=== PATIENT | female | born 1980 | race Caucasian/White ===

== ENCOUNTER 2018-04-09 15:32 | Inpatient (IN) | payer MEDICARE, MEDICAID, SELFPAY ==
[2018-04-09] VITALS (9 sets, daily range): BP systolic 114–144; BP diastolic 52–105; PULSE 109–137; RESP 20–42; TEMP 36.6–37.9; O2SAT 83–99; BMI 35.4
--- NOTE | 2018-04-09 15:33 | DI.RAD.S_ITS ---
PROCEDURE: XR CHEST 1V INDICATIONS: sob, wheezing, exposed to oven block cleaner. TECHNIQUE: One view of the chest was acquired. COMPARISON: None. FINDINGS: Surgical changes and devices: None. Lungs and pleura: Patchy right lower lobe opacity. In addition, streaky opacities are noted in the left upper and left lower lobes. Mediastinum: Mediastinal contours appear normal. Heart size is normal. Bones and chest wall: No suspicious bony lesions. Overlying soft tissues appear unremarkable. IMPRESSION: Streaky opacities within the lungs bilaterally. This could be related to infection or inflammatory change. However, given history of potential inhalation exposure, short interval imaging followup is recommended as development of ARDS cannot be excluded. Dictated by: Karissa Aldridge M.D. on 04/09/2018 at 17:53 Approved by: Karissa Aldridge M.D. on 04/09/2018 at 17:54
[2018-04-09] MEDS: ALBUTEROL 2.5 MG/3 ML NEB (ADULT) INH ×3 (16:13→17:19)
[2018-04-09] MEDS: ALBUTEROL/IPRATROPIUM 3 ML AMPUL INH (16:13)
--- NOTE | 2018-04-09 16:20 | ED.ASTHMA ---
HPI - Asthma General Chief Complaint: Asthma Stated Complaint: shortness of breath, hypoxia. Time Seen by Provider: 04/09/18 15:44 Source: patient and family Mode of arrival: ambulatory Limitations: no limitations History of Present Illness HPI Narrative: 37-year-old former smoker with history of IV drug abuse presents with chief complaint of respiratory distress after being exposed to of in clean her. She had been using the oven pillowcase cleaner and breathed in some of the fumes in the kitchen which seemed to trigger an asthma exacerbation. She came in significant respiratory distress, was hypoxic, tachypneic and anxious. She has a long history of asthma requiring hospitalizations and has in admission few months ago for an aspiration pneumonia. MD complaint: asthma attack and shortness of breath Onset (ago): minute(s) Severity: moderate Context: other Associated symptoms: none Asthma History: childhood onset Treatments Prior to Arrival: inhaled bronchodilator Related Data Current Asthma Therapy: inhaled bronchodilator and inhaled steroid Home Medications Medication Instructions Recorded Confirmed albuterol sulfate [Ventolin HFA] 2 puff INHALATION QID 04/09/18 04/09/18 clonazepam 1 mg PO TID 04/09/18 04/09/18 quetiapine 400 mg PO DAILY 04/09/18 04/09/18 Allergies Allergy/AdvReac Type Severity Reaction Status Date / Time Penicillins Allergy Verified 04/09/18 15:47 tramadol Allergy Verified 04/09/18 15:47 Review of Systems Review of Systems All systems reviewed & are unremarkable except as noted in HPI and below Constitutional Denies chills, Denies fever(s), Denies lethargy and Denies weakness Eyes Denies change in vision, Denies eye discharge, Denies irritation and Denies loss of vision ENT Ears, Nose, Mouth, and Throat: Denies change in voice, Denies neck pain and Denies sore throat Cardiovascular Denies chest pain, Denies irregular heart rhythm, Denies lightheadedness, Reports palpitations, Reports dyspnea, Denies dyspnea on exertion and Denies orthopnea Respiratory Denies cough, Reports dyspnea, Denies dyspnea on exertion and Reports wheezing Gastrointestinal Gastrointestinal: Denies abdominal pain, Denies change in bowel habits, Denies diarrhea, Denies nausea and Denies vomiting Genitourinary Denies hematuria, Denies flank pain, Denies urinary incontinence and Denies urinary urgency Musculoskeletal Denies neck pain Integumentary/Breasts Denies pruritus, Denies erythema, Denies rash and Denies wounds Neurologic Denies confusion, Denies loss of vision and Denies weakness Psychiatric Denies anxiety, Denies confusion, Denies depression, Denies homicidal ideation and Denies suicidal ideation Endocrine Reports palpitations Hematologic/Lymphatic Denies easy bruising Allergic/Immunologic Reports wheezing Exam Narrative Exam Narrative: GENERAL: 37F in respiratory distress, tachypneic HEAD: Atraumatic. Normocephalic. No temporal or scalp tenderness. EYES: Pupils equal round and reactive. Extraocular motions intact. No scleral icterus. No injection or drainage. ENT: Nose without bleeding, purulent drainage or septal hematoma. Throat without erythema, tonsillar hypertrophy or exudate. Uvula midline. Airway patent. NECK: Trachea midline. No JVD or lymphadenopathy. Supple, nontender, no meningeal signs. CARDIOVASCULAR: Regular and tachycardic without murmurs, gallops, or rubs. RESPIRATORY: Very tight and wheezy without crackles GASTROINTESTINAL: Abdomen soft, non-tender, nondistended. No hepato-splenomegaly, or palpable masses. No guarding. EXTREMITIES: No clubbing, cyanosis, or edema. No joint tenderness, effusion, or edema noted. BACK: Nontender without deformity or crepitance. No flank tenderness. NEURO: AOx3. SKIN: No rash or erythema. Initial Vital Signs Initial Vital Signs: Vital Signs Pulse Rate 130 H 04/09/18 15:40 Respiratory Rate 35 H 04/09/18 15:40 Pulse Oximetry 83 L 04/09/18 15:40 [facility] Social History Smoking Status: Current every day smoker Course Orders Ordered: ED Orders 04/09/18 15:33 XR chest 1V Stat 04/09/18 16:15 CBC [Complete Blood Count AUTO DIFF] Stat Comprehensive Metabolic Panel Stat 04/09/18 18:47 EKG-12 Lead Stat Discontinued Medications Albuterol (Ventolin) 2.5 mg INH NOW STA Stop: 04/09/18 16:08 Last Admin: 04/09/18 16:13 Dose: 2.5 mg Albuterol (Ventolin) 2.5 mg INH NOW ONE Stop: 04/09/18 16:11 Last Admin: 04/09/18 17:19 Dose: 2.5 mg Albuterol (Ventolin) 2.5 mg INH NOW ONE Stop: 04/09/18 16:11 Last Admin: 04/09/18 17:19 Dose: 2.5 mg Albuterol/Ipratropium (Duoneb) 3 ml INH NOW ONE Stop: 04/09/18 16:08 Last Admin: 04/09/18 16:13 Dose: 3 ml Levofloxacin (Levaquin) 750 mg in 150 mls @ 100 mls/hr IV NOW ONE Stop: 04/09/18 19:14 Last Admin: 04/09/18 17:50 Dose: 100 mls/hr Lorazepam (Ativan) 1 mg IV NOW ONE Stop: 04/09/18 17:20 Last Admin: 04/09/18 17:29 Dose: 1 mg Lorazepam (Ativan) 1 mg IV NOW ONE Stop: 04/09/18 18:31 Last Admin: 04/09/18 18:31 Dose: 1 mg Methylprednisolone (Solu-Medrol 125 Mg Vial) 125 mg IV NOW ONE Stop: 04/09/18 15:36 Last Admin: 04/09/18 16:21 Dose: 125 mg Reevaluation(s) Reevaluation #1: minimal improvement after multiple bronchodilators. IV placed by Ultrasound. Steroids administered Time: 16:28 Reevaluation #2: attempted BiPap, but patient didn't tolerate. Attempted ABG but patient refused after first failed attempt despite discussion of the importance of the study patient is doing much better on the hi lenin / high humidity nasal cannula. She is quite upset with her parents, and seems to get triggered by texts with her mother. She gets worked up, more tachycardic and tachypneic and her overall picture worses Consultations Consultation #1: call to Poison Control whom share the opinion that supportive treatment for presumed chemical pneumonitis is in order Vital Signs - 8 hr 04/09/18 15:40 04/09/18 15:44 04/09/18 17:00 Temperature 100.3 F H Pulse Rate 130 H 133 H 137 H Respiratory Rate 35 H 32 H 33 H Blood Pressure 144/105 H Blood Pressure [Left Arm] 139/72 Pulse Oximetry 83 L 89 L 93 04/09/18 17:19 04/09/18 18:00 04/09/18 19:00 Temperature Pulse Rate 135 H 132 H 128 H Respiratory Rate 35 H 42 H 20 Blood Pressure Blood Pressure [Left Arm] 119/74 114/68 Pulse Oximetry 94 92 97 MDM - Asthma Differential Diagnosis Differential diagnosis: Likely Acute exacerbation, Acute asthmatic bronchitis, Pneumonia, ARDS and Pneumothorax Medical Records Attestation: I reviewed the patient's medical records. Lab Data Attestation: I reviewed the patient's lab results. Result diagrams: 04/09/18 16:15 04/09/18 16:15 Lab Results 04/09/18 04/09/18 Range/Units 16:15 16:15 WBC 19.8 H (4.5-11.0) X10^3/uL RBC 4.86 (4.0-5.2) X10^6/uL Hgb 14.7 (12.0-16.0) g/dL Hct 42.9 (36-46) % MCV 88.1 (80-100) fL MCH 30.3 (26-34) PG MCHC 34.4 (30-36) % RDW 15.5 H (11.6-14.8) % Plt Count 246 (150-400) X10^3/uL Neut % (Auto) 81.7 H (50-75) % Lymph % (Auto) 12.1 L (25-40) % [place] % (Auto) 4.8 (3-14) % Eos % (Auto) 0.9 L (2-4) % Baso % (Auto) 0.5 (0-2) % Neut # (Auto) 59911 H (7863-8234) /uL Sodium 140 (137-145) mmol/L Potassium 4.2 (3.4-5.1) mmol/L Chloride 103 (98-107) mmol/L Carbon Dioxide 28 (22-32) mmol/L BUN 10 (7-17) mg/dL Creatinine 0.60 (0.52-1.04) mg/dL Estimated GFR > 60.0 (>60) mL/min BUN/Creatinine Ratio 16.7 (6-22) Glucose 128 H (70-100) mg/dL Calcium 8.8 (8.4-10.2) mg/dL Total Bilirubin 0.4 (0.2-1.3) mg/dL AST 67 H (14-36) IU/L ALT 86 H (9-52) IU/L Alkaline Phosphatase 147 H (38-126) U/L Total Protein 7.0 (6.3-8.2) g/dL Albumin 3.9 (3.5-5.0) g/dL Globulin 3.1 (1.7-4.1) g/dL Albumin/Globulin Ratio 1.3 (1.0-2.8) ABG Data Interpretation: patient refused Discharge Plan Departure Patient Disposition: Admitted As Inpatient Clinical Impression: Acute chemical pneumonitis
[2018-04-09] MEDS: methylPREDNISolone 125 MG/2 ML VIAL IV (16:21)
[2018-04-09 16:30] LABS: Add Manual Diff / Slide Review NO; Basophils Percent Auto 0.5 % (0-2); Eosinophils Percent Auto 0.9 % (2-4); Hematocrit 42.9 % (36-46); Hemoglobin 14.7 g/dL (12.0-16.0); Lymphocytes Percent Auto 12.1 % (25-40); Mean Corpuscular HGB Conc 34.4 % (30-36); Mean Corpuscular Hemoglobin 30.3 PG (26-34); Mean Corpuscular Volume 88.1 fL (80-100); Monocytes Percent Auto 4.8 % (3-14); Neutrophils Absolute Auto 16200 /uL (3000-5900); Neutrophils Percent Auto 81.7 % (50-75); Platelet Count 246 X10^3/uL (150-400); Red Blood Cell Count 4.86 X10^6/uL (4.0-5.2); Red Cell Distribution Width 15.5 % (11.6-14.8); White Blood Cell Count 19.8 X10^3/uL (4.5-11.0)
[2018-04-09 16:41] LABS: Alanine Aminotransferase 86 IU/L (9-52); Albumin 3.9 g/dL (3.5-5.0); Albumin Globulin Ratio 1.3 (1.0-2.8); Alkaline Phosphatase 147 U/L (38-126); Aspartate Aminotransferase 67 IU/L (14-36); BUN Creatinine Ratio 16.7 (6-22); Bilirubin Total 0.4 mg/dL (0.2-1.3); Blood Urea Nitrogen 10 mg/dL (7-17); Calcium 8.8 mg/dL (8.4-10.2); Carbon Dioxide 28 mmol/L (22-32); Chloride 103 mmol/L (98-107); Estimated Glomerular Filt Rate > 60.0 mL/min (>60); Globulin 3.1 g/dL (1.7-4.1); Glucose 128 mg/dL (70-100); HEMOLYSIS < 15 (0-50); Potassium 4.2 mmol/L (3.4-5.1); Sodium 140 mmol/L (137-145)
[2018-04-09] MEDS: LORazepam 2 MG/ML SYRINGE 1 MG IV ×2 (17:29→18:31)
--- NOTE | 2018-04-09 17:44 | PC.NURSE ---
Patient having increased coughing spells and increasing tachypnea. Provider notified and ordered ABG and 1mg Ativan IV. Patient refused ABG. Provider aware.
[2018-04-09] MEDS: levoFLOXacin 750 MG/150 ML PIGGYBACK 100 MG IV (17:50)
--- NOTE | 2018-04-09 18:44 | PC.NURSE ---
Pt on heated high flow nasal cannula, oxygen saturation improved to 97%. speaking in full sentences.
--- NOTE | 2018-04-09 19:01 | PC.NURSE ---
Spoke with Clarita from poison control and gave update on patient's condition.
--- NOTE | 2018-04-09 19:31 | RT ---
Attempted to place patient on BIPAP but was refused after only 10 breaths or so. It makes me feel like I can't breath, from patient. subsequently placed on high flow O2 at 40L and 50%. Appears to be tolerating that well at the moment. SPO2 running 96% and heart rate coming down into the 120's and Respiratory rate running 30. Patient still stating I don't want to be here, there is nothing wrong with my breathing!
--- NOTE | 2018-04-09 21:41 | P.HP_ITS ---
History of Present Illness Date Patient Seen: 04/09/18 Time Patient Seen: 21:39 Chief complaint: shortness of breath, hypoxia. Narrative: 37-year-old female with asthma presents today with 6 asthma exacerbation after being exposed to a friend clean her. She has been doing well with her asthma using steroid inhaler twice a day and albuterol 3 times a day as needed and she was cleaning her oven with the sum of an beer coil cleaner chemical and inhaled it became very short of breath lots of coughing and bronchospasms unresponsive to treatment at home came to the emergency room was treated several times and was hypoxic of the with O2 sat of 82% initially was given Solu -Medrol and inhalers and nebulizers and did not improve. No fevers at home. Patient History Medical History Asthma (Acute) Bipolar 1 disorder (Acute) Family & Social History Family History: Reviewed 04/09/18 by Duran Cantu MD Social History: household members none Prior Living Arrangements Apartment/Condo Safety & Behavioral: Feels Safe in Current Yes Environment Been Physically Hurt or No Threatened By a Person Suicidal Ideation Description None Suicide Plan Description No Plan Tobacco & Substance use: Tobacco type cigarettes Smoking Status Current every day smoker alcohol intake never alcohol intake frequency 0-2 drinks per day Substance Use Type marijuana Meds Home Medications Medication Instructions Recorded Confirmed Type albuterol sulfate [Ventolin HFA] 2 puff INHALATION QID 04/09/18 04/09/18 History clonazepam 1 mg PO TID 04/09/18 04/09/18 History quetiapine 400 mg PO DAILY 04/09/18 04/09/18 History Allergies Allergy/AdvReac Type Severity Reaction Status Date / Time Penicillins Allergy Verified 04/09/18 15:47 tramadol Allergy Verified 04/09/18 15:47 Review of Systems Constitutional Constitutional: Reports system reviewed and no additional complaints, except as documented Eyes Eyes: Reports system reviewed; no additional complaints, except as documented ENT Ears, Nose, Mouth, and Throat: Yes system reviewed; no additional complaints, except as documented Cardiovascular Cardiovascular: Reports system reviewed; no additional complaints, except as documented Respiratory Respiratory: Reports cough and Reports wheezing Gastrointestinal Gastrointestinal: Reports system reviewed and no additional complaints, except as documented Genitourinary Genitourinary: Reports system reviewed and no additional complaints, except as documented Musculoskeletal Musculoskeletal: Reports system reviewed; no additional complaints, except as documented Integumentary/Breasts Skin/Breast: Reports system reviewed and no additional complaints, except as documented Neurologic Neurologic: Reports system reviewed and no additional complaints, except as documented Psychiatric Psychiatric: Reports system reviewed and no additional complaints, except as documented Endocrine Endocrine: Reports system reviewed and no additional complaints, except as documented Hematologic/Lymphatic Hematologic/Lymphatic: Reports system reviewed and no additional complaints, except as documented Allergic/Immunologic Allergic/Immunologic: Reports system reviewed and no additional complaints, except as documented and Reports wheezing Exam Vital Signs (past 8 hours): - 04/09/18 15:40 04/09/18 15:44 04/09/18 17:00 Temperature 100.3 F H Pulse Rate 130 H 133 H 137 H Respiratory Rate 35 H 32 H 33 H Blood Pressure 144/105 H Blood Pressure [Left Arm] 139/72 Pulse Oximetry 83 L 89 L 93 04/09/18 17:19 04/09/18 18:00 04/09/18 19:00 Temperature Pulse Rate 135 H 132 H 128 H Respiratory Rate 35 H 42 H 20 Blood Pressure Blood Pressure [Left Arm] 119/74 114/68 Pulse Oximetry 94 92 97 04/09/18 20:05 04/09/18 20:38 Temperature 98 F Pulse Rate 121 H 121 H Respiratory Rate 25 H 26 H Blood Pressure 130/52 L Blood Pressure [Left Arm] Pulse Oximetry 96 99 Fraction of Inspired Oxygen 40 Oxygen Delivery Method Heated High Flow Oxygen Flow Rate 40 Narrative Exam Narrative: Young adult female very anxious appearing and tachypneic morbidly obese persistent coughing spasms Oropharynx clear Lungs tight wheezing bilateral Heart tachycardic Abdomen obese Lower extremities no edema Skin warm and dry Neuro exam awake alert oriented x3 so what anxious Objective Labs Result Diagrams: 04/09/18 16:15 04/09/18 16:15 Labs: Laboratory Results - last 24 hr 04/09/18 04/09/18 16:15 16:15 WBC 19.8 H RBC 4.86 Hgb 14.7 Hct 42.9 MCV 88.1 MCH 30.3 MCHC 34.4 RDW 15.5 H Plt Count 246 Neut % (Auto) 81.7 H Lymph % (Auto) 12.1 L [place] % (Auto) 4.8 Eos % (Auto) 0.9 L Baso % (Auto) 0.5 Neut # (Auto) 67655 H Sodium 140 Potassium 4.2 Chloride 103 Carbon Dioxide 28 BUN 10 Creatinine 0.60 Estimated GFR > 60.0 BUN/Creatinine Ratio 16.7 Glucose 128 H Calcium 8.8 Total Bilirubin 0.4 AST 67 H ALT 86 H Alkaline Phosphatase 147 H Total Protein 7.0 Albumin 3.9 Globulin 3.1 Albumin/Globulin Ratio 1.3 Assessment & Plan Plan: Assessment/Plan Narrative: One. Chemical pneumonitis chest x-ray showing some possible linear opacities. Bronchospasms due to the chemical exposure. Patient is somewhat hypoxic she is requiring high-flow nasal cannula. That will continue give her Tessalon Perles for the cough and bronchodilators budesonide inhaler and/or IV steroids. Gentle IV hydration also 2. Bipolar disorder plan to continue home medications
[2018-04-09] MEDS: clonazePAM 0.5 MG TABLET 1 MG PO (22:01)
[2018-04-09] MEDS: methylPREDNISolone 125 MG/2 ML VIAL 60 MG IV (22:08)
[2018-04-09] MEDS: QUETIAPINE 200 MG TABLET 400 MG PO (22:12)
[2018-04-09] MEDS: BUDESONIDE 0.5 MG/2 ML NEB INH (22:17)
[2018-04-09] MEDS: LEVALBUTEROL 1.25 MG/0.5 ML NEB INH (22:17)
[2018-04-09] MEDS: BENZONATATE 100 MG CAPSULE PO (22:30)
[2018-04-09] MEDS: CODEINE/GUAIFENESIN LIQUID 10 ML PO (22:30)
[2018-04-10] VITALS (20 sets, daily range): BP systolic 107–150; BP diastolic 50–113; PULSE 109–123; RESP 20–30; TEMP 35.9–36.6; O2SAT 86–96
[2018-04-10] MEDS: LEVALBUTEROL 1.25 MG/0.5 ML NEB INH ×6 (00:01→19:32)
[2018-04-10] MEDS: CODEINE/GUAIFENESIN LIQUID 10 ML PO ×7 (00:35→19:32)
[2018-04-10] MEDS: SODIUM CHLORIDE 0.9% 1,000 ML 60 ML IV (00:59)
[2018-04-10] MEDS: clonazePAM 0.5 MG TABLET 1 MG PO ×4 (00:59→21:11)
[2018-04-10] MEDS: methylPREDNISolone 125 MG/2 ML VIAL 60 MG IV ×3 (04:54→21:12)
[2018-04-10] MEDS: BUDESONIDE 0.5 MG/2 ML NEB INH ×2 (05:27→17:44)
--- NOTE | 2018-04-10 07:03 | PC.NURSE ---
NOC Shift: Pt remains on 40% heated hiflo NC sats stable when on O2 pt does not tolerate activity, sats drop quickly to low 80's w/blue lips. However does recover within 5 mins back on O2. BS tight, wheezes w/persistant cough. Guifenison/Codiene elixir affective for sleep, cough control. VSS, ST 115 on tele. IVF's started. Anxiety much improved throughout shift.
--- NOTE | 2018-04-10 08:23 | CM.DANOTE ---
DCP: Case receive, EMR reviewed and met with patient. Introduced self and role. DCP template completed with information currently available. Patient is a 37 year old female who admitted yesterday evening to the care of the hospitalist team. PCP: Dr. Rajput. Payer: confirmed: Medicare/Medicaid. Patient is disabled. Patient came to hospital with exacerbated shortness of breath/hypoxia. Patient has history of asthma. Patient carries diagnosis of Chemical exposure pneumonitis. Patient alert and oriented, on high flow oxygen at this time. Patient lives alone in [place], but stated that her mother is nearby. Patient is also anxious to go home. P: DCP to follow closely. Should be able to return home when medically stable. Yue Rojas RN/[employer]
[2018-04-10] MEDS: ENOXAPARIN 40 MG/0.4 ML SYRINGE SUBCUT (11:49)
[2018-04-10] MEDS: ACETAMINOPHEN 325 MG TABLET 650 MG PO (13:25)
--- NOTE | 2018-04-10 15:43 | PM.PN.1 ---
Subjective Date Patient Seen: 04/10/18 Interval history: Patient dyspneic, requiring 40% FiO2 via high-flow nasal cannula. She is a bit tearful and anxious and desiring to get back home as soon as possible. Exam Vital Signs (past 8 hours): - 04/10/18 07:56 04/10/18 07:57 04/10/18 08:16 Temperature 97 F L Pulse Rate 110 H 110 H Respiratory Rate 24 28 H Blood Pressure 150/113 H Pulse Oximetry 94 94 95 04/10/18 11:54 04/10/18 11:56 04/10/18 12:14 Temperature 97.1 F L Pulse Rate 123 H Respiratory Rate 24 Blood Pressure 133/71 Pulse Oximetry 90 L 89 L 94 Fraction of Inspired Oxygen 40 Oxygen Delivery Method Heated High Flow Oxygen Flow Rate 40 Narrative Exam Narrative: GENERAL: Alert, somewhat tearful, anxious but very cooperative HEENT: Head normocephalic, atraumatic. Mucous membranes moist. CHEST: Labored breathing, tight, diffuse bilateral wheeze CARDIAC: Tachycardic with regular rhythm ABDOMEN: Nondistended, soft, nontender EXTREMITIES: no edema. NEUROLOGICAL: Nonfocal SKIN: Warm, dry, no petechiae, no rash Objective Labs Result Diagrams: 04/09/18 16:15 04/09/18 16:15 Labs: Laboratory Results - last 24 hr 04/09/18 04/09/18 04/09/18 16:15 16:15 20:00 WBC 19.8 H RBC 4.86 Hgb 14.7 Hct 42.9 MCV 88.1 MCH 30.3 MCHC 34.4 RDW 15.5 H Plt Count 246 Neut % (Auto) 81.7 H Lymph % (Auto) 12.1 L [place] % (Auto) 4.8 Eos % (Auto) 0.9 L Baso % (Auto) 0.5 Neut # (Auto) 22744 H Sodium 140 Potassium 4.2 Chloride 103 Carbon Dioxide 28 BUN 10 Creatinine 0.60 Estimated GFR > 60.0 BUN/Creatinine Ratio 16.7 Glucose 128 H Calcium 8.8 Total Bilirubin 0.4 AST 67 H ALT 86 H Alkaline Phosphatase 147 H Total Protein 7.0 Albumin 3.9 Globulin 3.1 Albumin/Globulin Ratio 1.3 Nasal Screen MRSA (PCR) Negative for mrsa Assessment & Plan Plan: Assessment/Plan Narrative: 1. Acute hypoxic respiratory failure secondary to chemical pneumonitis (due to household chlorine and oven spray) and asthma exacerbation: Patient with sats dropping in the low 80s on room air. Still with significant bronchospasm and not moving air well. She has history of asthma intubation in September of this year at outside hospital. Elevated WBC likely reactive. Plan: Continue Solu-Medrol 60 mg every 8 hr, frequent nebulizers with RT, high-flow nasal cannula. Repeat CBC in a.m.. Repeat chest x-ray in a.m.. 2. Bipolar disorder, anxiety: Continue patient's routine Seroquel and Klonopin. From talking to patient, it sounds like she has had difficult time emotionally recently with a tubal and also hospitalizations related to asthma earlier this year. 3. Migraine headache: Order Toradol as needed which patient requested for her headaches.
--- NOTE | 2018-04-10 15:48 | P.PN_ITS ---
Subjective Date Patient Seen: 04/10/18 Interval history: Patient dyspneic, requiring 40% FiO2 via high-flow nasal cannula. She is a bit tearful and anxious and desiring to get back home as soon as possible. Exam Vital Signs (past 8 hours): - 04/10/18 07:56 04/10/18 07:57 04/10/18 08:16 Temperature 97 F L Pulse Rate 110 H 110 H Respiratory Rate 24 28 H Blood Pressure 150/113 H Pulse Oximetry 94 94 95 04/10/18 11:54 04/10/18 11:56 04/10/18 12:14 Temperature 97.1 F L Pulse Rate 123 H Respiratory Rate 24 Blood Pressure 133/71 Pulse Oximetry 90 L 89 L 94 Fraction of Inspired Oxygen 40 Oxygen Delivery Method Heated High Flow Oxygen Flow Rate 40 Narrative Exam Narrative: GENERAL: Alert, somewhat tearful, anxious but very cooperative HEENT: Head normocephalic, atraumatic. Mucous membranes moist. CHEST: Labored breathing, tight, diffuse bilateral wheeze CARDIAC: Tachycardic with regular rhythm ABDOMEN: Nondistended, soft, nontender EXTREMITIES: no edema. NEUROLOGICAL: Nonfocal SKIN: Warm, dry, no petechiae, no rash Objective Labs Result Diagrams: 04/09/18 16:15 04/09/18 16:15 Labs: Laboratory Results - last 24 hr 04/09/18 04/09/18 04/09/18 16:15 16:15 20:00 WBC 19.8 H RBC 4.86 Hgb 14.7 Hct 42.9 MCV 88.1 MCH 30.3 MCHC 34.4 RDW 15.5 H Plt Count 246 Neut % (Auto) 81.7 H Lymph % (Auto) 12.1 L [place] % (Auto) 4.8 Eos % (Auto) 0.9 L Baso % (Auto) 0.5 Neut # (Auto) 21662 H Sodium 140 Potassium 4.2 Chloride 103 Carbon Dioxide 28 BUN 10 Creatinine 0.60 Estimated GFR > 60.0 BUN/Creatinine Ratio 16.7 Glucose 128 H Calcium 8.8 Total Bilirubin 0.4 AST 67 H ALT 86 H Alkaline Phosphatase 147 H Total Protein 7.0 Albumin 3.9 Globulin 3.1 Albumin/Globulin Ratio 1.3 Nasal Screen MRSA (PCR) Negative for mrsa Assessment & Plan Plan: Assessment/Plan Narrative: 1. Acute hypoxic respiratory failure secondary to chemical pneumonitis (due to household chlorine and oven spray) and asthma exacerbation: Patient with sats dropping in the low 80s on room air. Still with significant bronchospasm and not moving air well. She has history of asthma intubation in September of this year at outside hospital. Elevated WBC likely reactive. Plan: Continue Solu- Medrol 60 mg every 8 hr, frequent nebulizers with RT, high-flow nasal cannula. Repeat CBC in a.m.. Repeat chest x-ray in a.m.. 2. Bipolar disorder, anxiety: Continue patient's routine Seroquel and Klonopin. From talking to patient, it sounds like she has had difficult time emotionally recently with a tubal and also hospitalizations related to asthma earlier this year. 3. Migraine headache: Order Toradol as needed which patient requested for her headaches.
[2018-04-10] MEDS: SODIUM CHLORIDE 0.9% FLUSH 10 ML IV (21:12)
[2018-04-10] MEDS: QUETIAPINE 200 MG TABLET 400 MG PO (21:12)
[2018-04-11] VITALS (20 sets, daily range): BP systolic 100–131; BP diastolic 7–91; PULSE 98–130; RESP 22–32; TEMP 36.1–36.7; O2SAT 87–97
--- NOTE | 2018-04-11 | DI.CT.S_ITS ---
PROCEDURE: CT ANGIO CHEST PE PROTOCOL INDICATIONS: acute hypoxic respiratory failure TECHNIQUE: After the administration of intravenous contrast, 2 mm thick sections acquired from the pulmonary apices to the posterior costophrenic angles. 3-dimensional maximum intensity projection (MIP) coronal and sagittal reformats were then acquired through the thorax. For radiation dose reduction, the following was used: automated exposure control, adjustment of mA and/or kV according to patient size. COMPARISON: [facility], CT, CT CHEST ABDOMEN PELVIS WITH CONTRAST, 10/10/2017, 13:05. [facility], CT, CT ANGIO CHEST PE, 02/14/2018, 14:53. FINDINGS: Image quality: Excellent. Pulmonary arteries: Pulmonary arteries are normal in size, and demonstrate no intraluminal filling defects to suggest central pulmonary embolism. Lungs and pleura: Bilateral scattered groundglass opacities are noted not significantly changed in size or contour compared to , however there are areas of increased consolidation within the groundglass opacities which have developed in the interval since the prior exam. No pleural effusions or pneumothorax. Central and peripheral airways are patent. Mediastinum: Heart size is normal, without pericardial effusion. No mediastinal or hilar adenopathy. Thoracic aorta is normal in caliber and enhancement. Esophagus is normal in caliber, without hiatal hernia. Bones and chest wall: No suspicious bony lesions. Ribs and thoracic spine appear intact throughout. Thyroid gland is within normal limits where visualized. No axillary or supraclavicular adenopathy. Abdomen: Diffuse fatty infiltration the visualized liver is noted. Visualized upper abdominal solid organs otherwise appear normal in the early arterial phase of enhancement. IMPRESSION: 1. No pulmonary embolus. 2. Bilateral groundglass opacities concerning for atypical pneumonia versus inflammatory etiologies including hypersensitivity pneumonitis. 3. Patchy bilateral lung consolidation consistent with multilobar pneumonia. 4. Findings discussed with Dr. Niesha Rhodes on 04/11/2018 at 1225 hrs. Dictated by: Sandy Jarquin MD, PhD on 04/11/2018 at 12:14 Approved by: Sandy Jarquin MD, PhD on 04/11/2018 at 12:26
[2018-04-11] MEDS: LEVALBUTEROL 1.25 MG/0.5 ML NEB INH ×7 (01:55→21:05)
[2018-04-11] MEDS: CODEINE/GUAIFENESIN LIQUID 10 ML PO ×7 (02:22→20:27)
[2018-04-11] MEDS: methylPREDNISolone 125 MG/2 ML VIAL 60 MG IV ×3 (05:08→20:30)
[2018-04-11 05:13] LABS: Hematocrit 38.8 % (36-46); Mean Corpuscular HGB Conc 33.6 % (30-36); Mean Corpuscular Hemoglobin 29.7 PG (26-34); Mean Corpuscular Volume 88.6 fL (80-100); Platelet Count 251 X10^3/uL (150-400); Red Blood Cell Count 4.39 X10^6/uL (4.0-5.2); Red Cell Distribution Width 15.9 % (11.6-14.8)
[2018-04-11 05:18] LABS: Blood Urea Nitrogen 18 mg/dL (7-17); Calcium 9.2 mg/dL (8.4-10.2); Carbon Dioxide 27 mmol/L (22-32); Chloride 106 mmol/L (98-107); Estimated Glomerular Filt Rate > 60.0 mL/min (>60); Glucose 192 mg/dL (70-100); HEMOLYSIS < 15 (0-50); Potassium 4.8 mmol/L (3.4-5.1); Sodium 140 mmol/L (137-145)
[2018-04-11] MEDS: BUDESONIDE 0.5 MG/2 ML NEB INH ×2 (05:27→18:13)
[2018-04-11 05:53] LABS: Add Manual Diff / Slide Review YES
[2018-04-11 05:56] LABS: White Blood Cell Count 38.2 X10^3/uL (4.5-11.0)
--- NOTE | 2018-04-11 06:00 | DI.RAD.S_ITS ---
PROCEDURE: XR CHEST 1V INDICATIONS: pneumonitis TECHNIQUE: One view of the chest was acquired. COMPARISON: [facility], CR, XR CHEST 1 VIEW, 10/09/2017, 5:39. [facility], CR, XR CHEST 1 VIEW, 10/08/2017, 17:14. [facility], CR, XR CHEST 2 VIEWS, 11/24/2017, 11:09. [facility], CR, XR CHEST 2 VIEWS, 11/01/2017, 14:22. [facility], CT, CT ANGIO CHEST PE, 02/14/2018, 14:53. [facility], CR, XR CHEST 2 VIEWS, 02/14/2018, 11:11. [facility], CR, XR CHEST 1V, 04/09/2018, 16:49. FINDINGS: Surgical changes and devices: None. Lungs and pleura: No pleural effusions or pneumothorax. Lung volumes remain low. Persistent bilateral airspace opacities redemonstrated, slightly more confluent involving the left upper lobe. Mediastinum: Mediastinal contours appear normal. Heart size is normal. Bones and chest wall: No suspicious bony lesions. Overlying soft tissues appear unremarkable. IMPRESSION: Bilateral consolidative opacities, appearing slightly worsened in the left upper lobe suspicious for multifocal pneumonia. Dictated by: Titus ROSS Interpreted: Shree Bah MD on 04/11/2018 at 8:43 Approved by: Shree Bah M.D. on 04/11/2018 at 9:47
[2018-04-11 07:37] LABS: Neutrophils Absolute Manual 37818 /uL (3000-5900); Polychromasia 1+; Total Cells Counted 100
[2018-04-11] MEDS: ENOXAPARIN 40 MG/0.4 ML SYRINGE SUBCUT (08:46)
[2018-04-11] MEDS: AZITHROMYCIN 500 MG in DEXTROSE 5% IN WATER 250 ML IV (08:46)
[2018-04-11] MEDS: clonazePAM 0.5 MG TABLET 1 MG PO ×3 (08:46→20:29)
[2018-04-11] MEDS: SODIUM CHLORIDE 0.9% FLUSH 10 ML IV ×2 (08:47→20:27)
--- NOTE | 2018-04-11 11:24 | PM.PN.1 ---
Subjective Date Patient Seen: 04/11/18 Interval history: Patient reports that she is feeling better today. However she is tachycardic and continues to require high flow oxygen to keep her saturations at 93% or above. She is anxious and wants to go home. Exam Vital Signs (past 8 hours): - 04/11/18 04:00 04/11/18 04:12 04/11/18 05:21 Temperature 97.6 F Pulse Rate 98 H Respiratory Rate 27 H Blood Pressure 123/43 L Pulse Oximetry 95 95 94 04/11/18 05:27 04/11/18 08:28 04/11/18 08:30 Temperature Pulse Rate 108 H 123 H Respiratory Rate 28 H 32 H Blood Pressure Pulse Oximetry 96 93 96 04/11/18 08:32 04/11/18 11:02 Temperature 97 F L Pulse Rate 113 H 130 H Respiratory Rate 24 28 H Blood Pressure 129/91 H Pulse Oximetry 95 94 Fraction of Inspired Oxygen 35 Oxygen Delivery Method Heated High Flow Oxygen Flow Rate 40 Narrative Exam Narrative: Pleasant female with obvious increased work of breathing, She is using accessory muscles and appears to have labored breathing Lungs: Decreased breath sounds with diffused end expiratory wheezing CV: Tachycardic, Nl Sl S2 Abd: obese/ soft/non tender Ext: no edema Objective Labs Result Diagrams: 04/11/18 04:48 04/11/18 04:48 Labs: Laboratory Results - last 24 hr 04/11/18 04/11/18 04:48 04:48 WBC 38.2 H* D RBC 4.39 Hgb 13.0 Hct 38.8 MCV 88.6 MCH 29.7 MCHC 33.6 RDW 15.9 H Plt Count 251 Neut % (Auto) Not Reportable Lymph % (Auto) Not Reportable [place] % (Auto) Not Reportable Eos % (Auto) Not Reportable Baso % (Auto) Not Reportable Total Counted 100 Seg Neutrophils % 85.0 H Band Neutrophils % 14.0 H Lymphocytes % (Manual) 1.0 L Neutrophils # (Manual) 59773 H RBC Morphology See below Polychromasia 1+ H Sodium 140 Potassium 4.8 Chloride 106 Carbon Dioxide 27 BUN 18 H Creatinine 0.60 Estimated GFR > 60.0 BUN/Creatinine Ratio 30.0 H Glucose 192 H Calcium 9.2 Assessment & Plan (1) Acute respiratory failure with hypoxia: Problem details: Continue Hi Flow oxygen for now, Will continue current dose of steroids. Will check CTA today to r/o PE Continue nebulizers as well Current visit: Yes Status: Acute (2) Bipolar affective disorder: Problem details: Continue usual home medications Current visit: Yes Status: Acute (3) Multifocal pneumonia: Problem details: Given significant increase in WBC, Will add ceftriaxone. Will check C-reactive protein and Procalcitonin as well Current visit: Yes Status: Acute Plan: Assessment/Plan Narrative: Further recommendations pending results of above
[2018-04-11] MEDS: CEFTRIAXONE 2 GM/50 ML FROZ.PIGGY IV (12:43)
[2018-04-11 13:39] LABS: Procalcitonin 0.31 ng/mL (<0.5)
--- NOTE | 2018-04-11 18:25 | PC.NURSE ---
Addendum entered by Candy Sanchez R.N. 04/11/18 21:05: 2030 - Pt awake, SBA to [facility]. Anxious and tearful. Stating that she has been here for weeks and needs to go home. Reoriented to time, length of stay and treatment plan. Relayed her mom's message that her rent is paid and her dog is with her grandma. Pt states I am tired of fighting, I have been dying all year. Activity and anxiety increase SOB and initiated a coughing jag. RX given. Pt reports chest wall discomfort r/t cough, APAP given. HS meds. Pt awaiting call from her sister. Pt mom states that pt is in a manic phase and needs to be encouraged to stay. Reinforced safety and call light use. RT to give breathing treatment. Monitor. Original Note: Pt anxious. Repeatedly asking when she can go home. Educated to treatment plan. Pt requesting O2 be reduced. 1530 RT reduced FIO2 to 30%. Current sats 93%. 1725 - Coughing jag following meal. Cough elixer given as ordered. Monitor.
[2018-04-11] MEDS: QUETIAPINE 200 MG TABLET 400 MG PO (20:27)
[2018-04-11] MEDS: BENZONATATE 100 MG CAPSULE PO (20:46)
[2018-04-12] VITALS (15 sets, daily range): BP systolic 115–152; BP diastolic 58–78; PULSE 90–114; RESP 16–32; TEMP 36.2–37.1; O2SAT 92–96
[2018-04-12] MEDS: CODEINE/GUAIFENESIN LIQUID 10 ML PO ×6 (01:16→16:52)
[2018-04-12] MEDS: KETOROLAC 30 MG/ML VIAL IV (01:33)
[2018-04-12] MEDS: SODIUM CHLORIDE 0.9% FLUSH 10 ML IV ×3 (01:34→21:45)
[2018-04-12 05:10] LABS: BUN Creatinine Ratio 38.6 (6-22); Blood Urea Nitrogen 27 mg/dL (7-17); Calcium 9.4 mg/dL (8.4-10.2); Carbon Dioxide 30 mmol/L (22-32); Chloride 103 mmol/L (98-107); Estimated Glomerular Filt Rate > 60.0 mL/min (>60); Glucose 204 mg/dL (70-100); HEMOLYSIS < 15 (0-50); Sodium 140 mmol/L (137-145)
[2018-04-12] MEDS: methylPREDNISolone 125 MG/2 ML VIAL 60 MG IV (05:12)
[2018-04-12] MEDS: BENZONATATE 100 MG CAPSULE PO ×2 (05:12→20:42)
[2018-04-12] MEDS: BUDESONIDE 0.5 MG/2 ML NEB INH ×2 (05:17→22:02)
[2018-04-12] MEDS: LEVALBUTEROL 1.25 MG/0.5 ML NEB INH ×4 (05:17→22:02)
[2018-04-12 05:23] LABS: Hematocrit 37.7 % (36-46); Hemoglobin 12.7 g/dL (12.0-16.0); Mean Corpuscular HGB Conc 33.6 % (30-36); Mean Corpuscular Hemoglobin 29.7 PG (26-34); Mean Corpuscular Volume 88.4 fL (80-100); Platelet Count 263 X10^3/uL (150-400); Red Blood Cell Count 4.26 X10^6/uL (4.0-5.2); Red Cell Distribution Width 15.8 % (11.6-14.8); White Blood Cell Count 25.4 X10^3/uL (4.5-11.0)
[2018-04-12 05:25] LABS: Add Manual Diff / Slide Review YES
[2018-04-12] MEDS: AZITHROMYCIN 500 MG in DEXTROSE 5% IN WATER 250 ML IV ×2 (06:24→16:44)
[2018-04-12 06:52] LABS: Anisocytosis 2+
[2018-04-12] MEDS: ENOXAPARIN 40 MG/0.4 ML SYRINGE SUBCUT (08:22)
[2018-04-12] MEDS: clonazePAM 0.5 MG TABLET 1 MG PO ×3 (08:22→20:44)
--- NOTE | 2018-04-12 09:57 | CM.DPNOTE ---
DCP: case discussed in Team Rounds. Dr. Rhodes says pt needs to transfer for a highter level of pulmonary care and she and RN coordinator Geni are working on this.
--- NOTE | 2018-04-12 14:42 | P.PN_ITS ---
Subjective Date Patient Seen: 04/12/18 Interval history: Patient is aggrevated because her IV came out. She has been stuck multiple times to replace it. She continues to cough and remains hypoxic but has been able to have her oxygen weaned down to 4 liters. She is anxious to go home and is threatening to leave. I explained that I think she needs a few more days of antibiotics. Her WBC are improving and she is making good progress. Exam Vital Signs (past 8 hours): - 04/12/18 08:07 04/12/18 08:10 04/12/18 08:13 Temperature 98.2 F Pulse Rate 99 H Respiratory Rate 22 Blood Pressure 145/78 H Pulse Oximetry 96 94 96 04/12/18 08:28 04/12/18 11:25 Temperature Pulse Rate Respiratory Rate Blood Pressure Pulse Oximetry 94 94 Fraction of Inspired Oxygen 30 Oxygen Delivery Method Nasal Cannula Oxygen Flow Rate 4 Narrative Exam Narrative: Agitated female Lungs: decreased breath sounds with tight end expiratory wheezing Room Air Saturation 84% CV: Tachycardic nl S1 S2 Abd: soft/ non tender/ non distended Ext: no edema Objective Labs Result Diagrams: 04/12/18 04:58 04/12/18 04:58 Labs: Laboratory Results - last 24 hr 04/12/18 04/12/18 04:58 04:58 WBC 25.4 H RBC 4.26 Hgb 12.7 Hct 37.7 MCV 88.4 MCH 29.7 MCHC 33.6 RDW 15.8 H Plt Count 263 Neut % (Auto) Not Reportable Lymph % (Auto) Not Reportable [place] % (Auto) Not Reportable Eos % (Auto) Not Reportable Baso % (Auto) Not Reportable Seg Neutrophils % 83.0 H Band Neutrophils % 1.0 L Lymphocytes % (Manual) 14.0 L D Monocytes % (Manual) 2.0 RBC Morphology See below Anisocytosis 2+ H Sodium 140 Potassium 5.0 Chloride 103 Carbon Dioxide 30 BUN 27 H Creatinine 0.70 Estimated GFR > 60.0 BUN/Creatinine Ratio 38.6 H Glucose 204 H Calcium 9.4 Assessment & Plan (1) Multifocal pneumonia: Problem details: Given significant increase in WBC, Will add ceftriaxone. Will check C-reactive protein and Procalcitonin as well. WBC better today. Discussed with Radiology. She would benefit from Bronchoscopy with BAL. Unfortunately she is demanding to leave and will go AMA. Will continue treatment for now and consider outpatient pulmonary referral Current visit: Yes Status: Acute (2) Bipolar affective disorder: Problem details: Continue usual home medications Current visit: Yes Status: Acute (3) Acute respiratory failure with hypoxia: Problem details: Continue Hi Flow oxygen for now, Will continue current dose of steroids. Will check CTA today to r/o PE Continue nebulizers as well ON 4 liters of oxygen. will switch solumedrol to po prednisone, continue nebulizers Current visit: Yes Status: Acute (4) Acute chemical pneumonitis: Problem details: treatment as above Current visit: Yes Status: Acute Plan: Assessment/Plan Narrative: She has very marginal pulmonary status, would hope to keep her here another 1-2 days prior to discharge
--- NOTE | 2018-04-12 15:18 | PC.NURSE ---
Day Shift Note Pt IV infiltrated on AM assessment and d/c'd. New peripheral IV placed by Ericka GARCIA at about 0900 which was then accidentally removed by pt at 1145. Unable to restart patient after several attempts and Ericka notified - will be by later this afternoon. Dr. Rhodes aware. On 4L NC with sats 96%. Hacking intermittent cough continues, relieved by guai w/ codeine.
[2018-04-12] MEDS: predniSONE 20 MG TABLET 60 MG PO (16:44)
[2018-04-12] MEDS: INSULIN ASPART 100 UNIT/ML INSULN PEN SUBCUT ×2 (17:05→20:59)
[2018-04-12] MEDS: CEFTRIAXONE 2 GM/50 ML FROZ.PIGGY IV (17:12)
[2018-04-12] MEDS: ONDANSETRON 4 MG/2 ML INJ IV (17:32)
--- NOTE | 2018-04-12 17:44 | PC.NURSE ---
Addendum entered by Candy Sanchez R.N. 04/12/18 21:11: 204 - Pt awake. Up to [facility]SC. Void. Pt with coughing jag. RX given. 93% on 2L. RT called for breathing tx. Pt tearful. States I don't feel good. unable to futher elaborate. Stating I just want my mommy. Reassurance provided. Scheduled clonazepam given. Call light in reach. Original Note: 1630 - JOSE Lopez to place IV using [place]. BG check 195, Pt tearful. Stating that she wants to go home. Reinforced treatment plan and improvements in status. Non-productive coughing jag, rx given. 1730 - Pt c/o not feeling good. State stomach upset and nausea. Zofran given. Returned to find pt picking at IV drsg. Educated to need to leave IV in place. IV covered with mess sleeve. ABX infusing. Monitor. Call light in reach.
[2018-04-12] MEDS: QUETIAPINE 200 MG TABLET 400 MG PO (20:42)
[2018-04-12] MEDS: ACETAMINOPHEN 325 MG TABLET 650 MG PO (20:42)
[2018-04-12] MEDS: CODEINE/GUAIFENESIN LIQUID 10ML UDC 10 ML PO (20:49)
[2018-04-13] VITALS (13 sets, daily range): BP systolic 111–141; BP diastolic 64–88; PULSE 81–111; RESP 16–23; TEMP 35.8–37.3; O2SAT 89–98
[2018-04-13] MEDS: KETOROLAC 30 MG/ML VIAL IV (00:31)
[2018-04-13] MEDS: SODIUM CHLORIDE 0.9% FLUSH 10 ML IV ×2 (00:32→12:43)
[2018-04-13] MEDS: BENZONATATE 100 MG CAPSULE PO (05:02)
[2018-04-13] MEDS: CODEINE/GUAIFENESIN LIQUID 10ML UDC 10 ML PO ×3 (05:03→13:08)
[2018-04-13 05:54] LABS: BUN Creatinine Ratio 37.1 (6-22); Blood Urea Nitrogen 26 mg/dL (7-17); Calcium 9.2 mg/dL (8.4-10.2); Carbon Dioxide 33 mmol/L (22-32); Chloride 103 mmol/L (98-107); Estimated Glomerular Filt Rate > 60.0 mL/min (>60); Glucose 149 mg/dL (70-100); HEMOLYSIS < 15 (0-50); Potassium 4.5 mmol/L (3.4-5.1); Sodium 143 mmol/L (137-145)
[2018-04-13 05:56] LABS: Hematocrit 40.2 % (36-46); Hemoglobin 13.5 g/dL (12.0-16.0); Mean Corpuscular HGB Conc 33.6 % (30-36); Mean Corpuscular Hemoglobin 29.5 PG (26-34); Mean Corpuscular Volume 87.8 fL (80-100); Platelet Count 236 X10^3/uL (150-400); Red Blood Cell Count 4.58 X10^6/uL (4.0-5.2); Red Cell Distribution Width 15.4 % (11.6-14.8); White Blood Cell Count 18.5 X10^3/uL (4.5-11.0)
[2018-04-13 05:57] LABS: Add Manual Diff / Slide Review YES
[2018-04-13] MEDS: LEVALBUTEROL 1.25 MG/0.5 ML NEB INH ×3 (06:04→15:12)
[2018-04-13] MEDS: BUDESONIDE 0.5 MG/2 ML NEB INH (06:04)
[2018-04-13 06:37] LABS: Anisocytosis 2+
--- NOTE | 2018-04-13 06:37 | PC.NURSE ---
Patient was sleeping without O2 on at midnight, SpO2 83%, woke her to place HFNC back in nares, she was tearful, agitated and resistive at first, with reassurance she relaxed and agreed to wear cannula, sats quickly increased to 96% RR 20s. Moslty complaining of abdominal cramping and headache, minimal cough at this time, IV Toradol given for pain per prn orders. Patient slept until 0500, woke coughing, codeine elixer and Tesselon pearls given. Patient was cooperative with lab draw this am, WBC 18.5.
[2018-04-13] MEDS: ENOXAPARIN 40 MG/0.4 ML SYRINGE SUBCUT (07:59)
[2018-04-13] MEDS: clonazePAM 0.5 MG TABLET 1 MG PO ×2 (08:00→14:54)
[2018-04-13] MEDS: INSULIN ASPART 100 UNIT/ML INSULN PEN SUBCUT ×2 (08:01→12:41)
[2018-04-13] MEDS: predniSONE 20 MG TABLET 60 MG PO (08:04)
--- NOTE | 2018-04-13 11:02 | PM.PN.1 ---
Subjective Date Patient Seen: 04/13/18 Interval history: She is significantly improved today. She is still anxious and wants to go home. Her oxygenation has improved, her WBC improved, and her lungs sound better. Exam Vital Signs (past 8 hours): - 04/13/18 05:00 04/13/18 05:15 04/13/18 06:36 Temperature 96.5 F L Pulse Rate 111 H 81 Respiratory Rate 20 16 Blood Pressure 128/88 Pulse Oximetry 94 94 92 04/13/18 08:00 04/13/18 10:01 Temperature 97.8 F Pulse Rate 88 Respiratory Rate 20 Blood Pressure 118/78 Pulse Oximetry 98 97 Fraction of Inspired Oxygen 30 Oxygen Delivery Method Room Air Oxygen Flow Rate 2 Narrative Exam Narrative: Anxious female who wants to go home LUngs: Decreased breath sounds with end expiratory wheezes CV: RRR nl Sl S2 Abd: soft/ non tender Ext: no edema Objective Labs Result Diagrams: 04/13/18 05:05 04/13/18 05:05 Labs: Laboratory Results - last 24 hr 04/13/18 04/13/18 05:05 05:05 WBC 18.5 H RBC 4.58 Hgb 13.5 Hct 40.2 MCV 87.8 MCH 29.5 MCHC 33.6 RDW 15.4 H Plt Count 236 Neut % (Auto) Not Reportable Lymph % (Auto) Not Reportable [place] % (Auto) Not Reportable Eos % (Auto) Not Reportable Baso % (Auto) Not Reportable Seg Neutrophils % 78.0 H Band Neutrophils % 2.0 L Lymphocytes % (Manual) 15.0 L Monocytes % (Manual) 5.0 RBC Morphology See below Anisocytosis 2+ H Sodium 143 Potassium 4.5 Chloride 103 Carbon Dioxide 33 H BUN 26 H Creatinine 0.70 Estimated GFR > 60.0 BUN/Creatinine Ratio 37.1 H Glucose 149 H Calcium 9.2 Assessment & Plan (1) Multifocal pneumonia: Problem details: Given significant increase in WBC, Will add ceftriaxone. Will check C-reactive protein and Procalcitonin as well. WBC better today. Discussed with Radiology. She would benefit from Bronchoscopy with BAL. Unfortunately she is demanding to leave and will go AMA. Will continue treatment for now and consider outpatient pulmonary referral. Same plan Current visit: Yes Status: Acute (2) Bipolar affective disorder: Problem details: Continue usual home medications Current visit: Yes Status: Acute (3) Acute respiratory failure with hypoxia: Problem details: Continue Hi Flow oxygen for now, Will continue current dose of steroids. Will check CTA today to r/o PE Continue nebulizers as well ON 4 liters of oxygen. will switch solumedrol to po prednisone, continue nebulizers She is making excellent progress. Will ask PT to see. If she can ambulate without desaturation she can go home today Current visit: Yes Status: Acute (4) Acute chemical pneumonitis: Problem details: treatment as above Current visit: Yes Status: Acute
[2018-04-13] MEDS: AZITHROMYCIN 500 MG in DEXTROSE 5% IN WATER 250 ML IV (12:39)
--- NOTE | 2018-04-13 14:15 | PT.IIE ---
Current Diagnoses Bipolar disorder, unspecified (04/09/18) Pneumonia, unspecified organism (04/09/18) Bronchitis and pneumonitis due to chemicals, gases, fumes and vapors (04/09/18) Acute respiratory failure with hypoxia (04/09/18) Medical History (Last Reviewed 04/09/18 @ 21:43 by Duran Cantu MD) Asthma (Acute) Bipolar 1 disorder (Acute) Physical Therapy Inpatient Evaluation/Re-Eval M1 PT/OT-IP Prior Functional Status Start: 04/13/18 14:15 Freq: NEEDED Status: Active Protocol: Document 04/13/18 14:15 RCC (Rec: 04/13/18 14:24 [facility] [id number]) Medical Review Prior Functional Status Medical History Reviewed Yes Mobility and Gait indep. community ambulator without device Activities of Daily Living and IADL's indep. ADLs; she rides the bus and occasionally gets meals on wheels Social History Household Members none Living Arrangements Apartment/Condo Number of Floors (Floors) One Floor Number of Stairs To Enter/Railing? no steps Home Environment Tub/Shower Additional Social History Comment lives alone with her dog Carlton Mireles. Her mother lives in [place], checks in on her. Pt lives in [place] in a studio apartment. Pt reports she walks 30 mins twice a day around her neighborhood with her dog. M2 PT-IP Current Condition Start: 04/13/18 14:15 Freq: NEEDED Status: Active Protocol: Document 04/13/18 14:15 RCC (Rec: 04/13/18 14:24 [facility] [id number]) Physical Therapy Current Condition Current Condition Evaluation Date 04/13/18 Treatment Diagnosis SOB, pneumonia, impaired activity tolerance Onset Date 04/09/18 Precautions Other Precautions monitor O2 saturation M3 PT-IP Subjective Start: 04/13/18 14:15 Freq: NEEDED Status: Active Protocol: Document 04/13/18 14:15 RCC (Rec: 04/13/18 14:24 [facility] [id number]) Subjective Physical Therapy Visit Type Type Initial Evaluation Visit Start Time 13:55 Visit Stop Time 14:15 Total Visit Minutes 20 Number of CHEMICAL PATHOLOGIST Visits 0 Physical Therapy Visit Comments Patient Comments pt wants to go home, she does not want to be here any more. Patient Goals she wants to go home M4 PT-IP Mobility and Gait Start: 04/13/18 14:15 Freq: NEEDED Status: Active Protocol: Document 04/13/18 14:15 RCC (Rec: 04/13/18 14:24 [facility] [id number]) PT-Bed Mobility Assessment Supine to Sit Supine to Sit Independent Scooting Scooting to Edge of Bed Independent PT-Transfer Assessment Sit to and From Stand Sit to and from Stand Independent Equipment Transfer Assistive Device None Transfers Transfer Destination Bed Transfer Technique Stand Step Pivot Transfer Ability Level of Assist Standby Assistance Comments Mobility Comments refused gait belt. Gait Assessment Gait Gait Assistance Required: Standby Assistance Distance (Feet) 180 Assistive Devices Assistive Device None Gait Deviations General Gait Pattern Decreased Stride Length Decreased Feet Clearance Factors Limiting Gait Function Factors Limiting Gait Function Decreased Activity Tolerance Comments Gait Comments O2 saturation 85-94% on RA during session, HR 80-123 bpm throughout gait; pt denied SOB but only able to get out 3 words per breath; occasional hand on counter or wall when standing rest to check O2 saturation. PT-Balance Assessment Sitting Balance and Reactions Static Sitting Balance Ability Good Dynamic Sitting Balance Ability Good Standing Balance and Reactions Static Standing Balance Ability Good Dynamic Standing Balance Ability Fair Device Used none M5 PT-IP Objective Assessments Start: 04/13/18 14:15 Freq: NEEDED Status: Active Protocol: Document 04/13/18 14:15 RCC (Rec: 04/13/18 14:24 [facility] [id number]) Orientation Orientation/Cognition Level of Alertness Alert Strength Lower Extremity Strength Assessment Within Functional Limits Sensation Assessment Sensation Gross Sensation WNL Muscle Tone Muscle Tone WNL Yes M6 PT-IP Treatment Start: 04/13/18 14:15 Freq: NEEDED Status: Active Protocol: Document 04/13/18 14:15 RCC (Rec: 04/13/18 14:24 [facility] [id number]) Physical Therapy Treatment Education Education Provided Safety Other Treatments Other Treatment Performed discussed the importance of energy conservation, ideas of taking a rest when able to only get out 2-3 words/breath. M7 PT-IP Assessment and Plan Start: 04/13/18 14:15 Freq: NEEDED Status: Active Protocol: Document 04/13/18 14:15 RCC (Rec: 04/13/18 14:24 [facility] [id number]) PT Summary Assessment and Plan Potential Rehabilitation Potential Good Status of Condition at Evaluation Evolving Summary Impairments Gait Activity Tolerance Assessment Summary Pt able to ambulate without an assistive device and no loss of balance during mobility. She does appear to have increased BOWIE, but denied any SOB when asked. Her O2 saturation decreased to 85% on RA during gait, and HR up to 123 bpm. Pt recovered in 1 min sitting on EOB to 93%. Overall, pt appears to be below her normal functional baseline, but expect pt to be able to return home when medically stable, with some help/assist from her mother, Maira. Goals Transfer Goal Independent Gait Goal Independent Gait Distance 300 Days to Meet Goals 2 Frequency of Treatment Frequency Of Treatment Once a Day Treatment Plan Physical Therapy Treatment Plan Gait Training Therapeutic Exercise Discharge Planning Recommendations To Nursing Amount of Assist Needed Standby Assistance Discharge Recommendations PT Discharge Recommendations Home with Assistance
--- NOTE | 2018-04-13 14:15 | CM.DPC ---
DCP Cont: Discussed patient during rounds. Dr. Rhodes stated that she is starting to show some signs of improvement, and stated that patient will remain here another day as long as her oxygen sats can improve. There were concerns of patient leaving AMA as well, for she does not want to be here. Dr. Rhodes stated that patient can follow up in outpatient seeing a bed control specialist. P: DCP continue to follow closely. May potentially be discharged tomorrow if stable on her oxygen saturations. Yue Rojas RN/Equipment Specialist
--- NOTE | 2018-04-13 15:08 | P.DS_ITS ---
History of Present Illness Date Patient Seen: 04/13/18 Chief complaint: shortness of breath, hypoxia. Narrative: 37-year-old female with asthma presents today with 6 asthma exacerbation after being exposed to a friend clean her. She has been doing well with her asthma using steroid inhaler twice a day and albuterol 3 times a day as needed and she was cleaning her oven with the sum of an overhead cleaner chemical and inhaled it became very short of breath lots of coughing and bronchospasms unresponsive to treatment at home came to the emergency room was treated several times and was hypoxic of the with O2 sat of 82% initially was given Solu -Medrol and inhalers and nebulizers and did not improve. No fevers at home. Discharge Providers Date of admission: 04/09/18 19:54 Consults: 04/09/18 21:05 Consult to Respiratory Therapy Evaluate & Treat Comment: Physician Instructions: Evaluate and treat 04/09/18 21:32 Consult to Respiratory Therapy Evaluate & Treat Comment: oxygen as needed Physician Instructions: Evaluate and treat 04/13/18 11:06 Consult to Physical Therapy Evaluate & Treat Comment: check rest and exercise 02 sat Physician Instructions: Evaluate and Treat Discharge provider: Niesha Rhodes MD Discharge Date: 04/13/18 Summary Discharge Diagnosis: Multifocal Pneumonia Acute Hypoxic Respiratory Failure Acute Asthma Exacerbation Bipolar Affective Disorder Morbid Obesity Chemical Pneumonitis Hospital Course: Patient was admitted to the hospital for acute hypoxic respiratory failure. She was found to have an 02 Sat in the 80% on admission. She continued to be hypoxic, with non productive cough, wheezing, and tachycardia for several days. The patient underwent a CT Angio which was negative for PE but confirmed ground glass opacities, suggestive of atypical pneumonia. She had multifocal pneumonia noted on CT as well. She was treated initially with Azithromycin and Ceftriaxone. She remained on IV steroids, oxygen , and nebulizers. She made slow but steady progress and was deemed appropriate for discharge home. The patient was recommended to follow up as an outpatient with Pulmonary for bronchoscopy given her recurrent infiltrates. This was communicated with her mother who will arrange the outpatient appointment. Status at Discharge Functional status at discharge: independent ambulation Overall status at discharge: patient is progressing back to baseline Time Spent with Patient Less than 30 minutes Exam Vital Signs (past 8 hours): - 04/13/18 08:00 04/13/18 08:20 04/13/18 10:01 Temperature 97.8 F Pulse Rate 88 Respiratory Rate 20 Blood Pressure 118/78 Pulse Oximetry 98 97 97 04/13/18 10:42 04/13/18 12:04 04/13/18 12:07 Temperature 99.2 F Pulse Rate 100 H 91 H Respiratory Rate 23 16 Blood Pressure 141/76 H Pulse Oximetry 89 L 92 93 Fraction of Inspired Oxygen 30 Oxygen Delivery Method Room Air Oxygen Flow Rate 0 Narrative Exam Narrative: Pleasant female in no acute distress Lungs: decreased breath sounds with end expiratory wheezing CV: RRR nl Sl S2 Abd: obese/soft/ non tender non distended Ext: no edema Objective Labs Result Diagrams: 04/13/18 05:05 04/13/18 05:05 Labs: Laboratory Results - last 24 hr 04/13/18 04/13/18 05:05 05:05 WBC 18.5 H RBC 4.58 Hgb 13.5 Hct 40.2 MCV 87.8 MCH 29.5 MCHC 33.6 RDW 15.4 H Plt Count 236 Neut % (Auto) Not Reportable Lymph % (Auto) Not Reportable [place] % (Auto) Not Reportable Eos % (Auto) Not Reportable Baso % (Auto) Not Reportable Seg Neutrophils % 78.0 H Band Neutrophils % 2.0 L Lymphocytes % (Manual) 15.0 L Monocytes % (Manual) 5.0 RBC Morphology See below Anisocytosis 2+ H Sodium 143 Potassium 4.5 Chloride 103 Carbon Dioxide 33 H BUN 26 H Creatinine 0.70 Estimated GFR > 60.0 BUN/Creatinine Ratio 37.1 H Glucose 149 H Calcium 9.2 Discharge Plan Discharge Plan Patient Disposition: Home Discharge comment: Patient has made significant improvement. She needs outpatient follow up with Pulmonary for bronchoscopy Discharge Med Rec/Prescriptions Prescriptions: New budesonide [Pulmicort] 0.5 mg/2 mL Suspension For Nebulization 0.5 mg INHALATION RTBID 7 Days RF: 0 benzonatate 100 mg Capsule 100 mg PO TID PRN (Reason: Cough) 7 Days RF: 0 codeine-guaifenesin 10-100 mg/5 mL Liquid 10 ml PO Q2H PRN (Reason: Cough) 5 Days RF: 0 prednisone 20 mg tablet 40 mg PO DAILY 5 Days RF: 0 levofloxacin 750 mg tablet 750 mg PO DAILY Qty: 5 RF: 0 Continue clonazepam 1 mg Tablet 1 mg PO TID RF: 0 albuterol sulfate [Ventolin HFA] 90 mcg/actuation Hfa Aerosol Inhaler 2 puff INHALATION QID RF: 0 quetiapine 400 mg Tablet 400 mg PO DAILY RF: 0 Provider Discharge Instructions Diet: Diet as Tolerated Activity: as tolerated Oxygen: Not indicated Discharge Data Attending Provider: Duran Cantu Admit Date/Time: 04/09/18 19:54
--- NOTE | 2018-04-13 16:11 | PC.NURSE ---
1530 - Pt requested to have discharge information reviewed prior to her mom's arrival. States that her mom is running short on time. Reviewed discharge information. Pt states that her insurance might not cover discharge meds ordered. Assist pt to call insurance company information line. 1600 - Pt mother arrived requesting to have samples of guiafenesin, notified that we are unable to provided rx at discharge. Pt is in a wheelchair and has already left the unit, heading out into the [facility]. Reinforcing with pt's mom the need for pt to follow up with a hand profiler. Pt mom asking if the appointment has already been made. Encourage pt and mom to follow up with PCP for referral or to call insurance company for preferred list. Unable to assist further with discharge order clarification and insurance coverage r/t pt urgency of departure. Able to encouraged pt and mom to review all written discharge information, in the [facility] way, while pt is exiting the hospital.
== END 2018-04-13 16:23 | disposition home or self-care (01) | DRG 917 ==
LOC: ED 18:12 → ICU 04-10 10:53
PROVIDERS: Internal Medicine; Admitting Provider Internal Medicine; Emergency Provider Emergency Medicine; Visit Provider Internal Medicine
DX: T65.891A Toxic effect of other specified substances, accidental (unintentional), initial encounter (principal); J96.01 Acute respiratory failure with hypoxia; J18.9 Pneumonia, unspecified organism; J68.0 Bronchitis and pneumonitis due to chemicals, gases, fumes and vapors; J45.901 Unspecified asthma with (acute) exacerbation; Y92.000 Kitchen of unspecified non-institutional (private) residence as the place of occurrence of the external cause; Z68.36 Body mass index [BMI] 36.0-36.9, adult; F31.9 Bipolar disorder, unspecified; G43.909 Migraine, unspecified, not intractable, without status migrainosus; F17.210 Nicotine dependence, cigarettes, uncomplicated; F41.9 Anxiety disorder, unspecified; E66.01 Morbid (severe) obesity due to excess calories; Z68.39 Body mass index [BMI] 39.0-39.9, adult
CPT/HCPCS: 36415; 36591; 71045; 71275; 80048; 80053; 82962; 84145; 85025; 87797; 93005; 94150; 94640; 94760; 94762; 96365; 96367; 96375; 96376; 97162; 99284; 99285; 99406; A9270; J0696; J1650; J1885; J1956; J2060; J2405; J2930; J7613; J7614; Q9967

== ENCOUNTER 2018-06-07 23:52 | Emergency (ER) | payer MEDICARE, MEDICAID, SELFPAY ==
[2018-04-09 20:05] VITALS: BMI 35.4
[2018-06-07 23:55] VITALS: BP 122/74; PULSE 130; RESP 28; TEMP 36.6; O2SAT 94; BMI 51.3
--- NOTE | 2018-06-07 23:59 | ED_ITS ---
HPI - SOB/Dyspnea General Chief Complaint: Asthma Stated Complaint: Dyspnea Time Seen by Provider: 06/07/18 23:58 Source: patient Mode of arrival: ambulatory Limitations: no limitations History of Present Illness Patient is a 37-year-old female with a history of asthma. It appears that she has been intubated and hospitalized in the past secondary to her asthma. She states that she uses her nebulizer at home every 4 hr and also an inhaler multiple times a day. Her primary care doctor manages her asthma treatment. She states that today she started having problems breathing to the point where she was unable to maintain her breathing at home. She is not on oxygen at home. States she has had multiple pneumonias in the past. Is not currently on antibiotics. Does take a daily inhaled steroid. Related Data Home Medications Medication Instructions Recorded Confirmed albuterol sulfate [Ventolin HFA] 2 puff INHALATION QID 04/09/18 04/09/18 clonazepam 1 mg PO TID 04/09/18 04/09/18 quetiapine 400 mg PO DAILY 04/09/18 04/09/18 Previous Rx's Medication Instructions Recorded levofloxacin 750 mg PO DAILY #5 tab 04/13/18 dexamethasone [Decadron] 16 mg PO .once #4 tab 06/08/18 ibuprofen 800 mg PO BID-TID PRN #30 tab 06/08/18 Allergies Allergy/AdvReac Type Severity Reaction Status Date / Time Penicillins Allergy Verified 04/09/18 15:47 tramadol Allergy Verified 04/09/18 15:47 Review of Systems Constitutional Denies fever(s) and Denies headache(s) ENT Ears, Nose, Mouth, and Throat: Denies headache(s) Cardiovascular Denies chest pain, Denies edema, Denies leg edema and Reports dyspnea Respiratory Reports cough, Reports pain on inspiration, Reports dyspnea and Reports wheezing Gastrointestinal Gastrointestinal: Denies abdominal pain, Denies nausea and Denies vomiting Genitourinary Denies dysuria Musculoskeletal Denies myalgias and Denies arthralgias Integumentary/Breasts Denies rash Neurologic Denies headache(s) Hematologic/Lymphatic Comments: Not on anticoagulation Allergic/Immunologic Reports wheezing PFSH Social History household members: none Smoking Status: Current some day smoker alcohol intake: never Exam Initial Vital Signs Initial Vital Signs: Vital Signs Temperature 98 F 06/07/18 23:55 Pulse Rate 130 H 06/07/18 23:55 Respiratory Rate 28 H 06/07/18 23:55 Blood Pressure 122/74 06/07/18 23:55 Pulse Oximetry 94 06/07/18 23:55 Const General: cooperative and in distress Orientation: alert, awake and oriented x3 HENMT Head: normal to inspection and normocephalic Resp Effort & Inspection: audible wheezes, labored, respiratory distress, no retractions and tachypneic Auscultation: wheezes expiratory wheezes and inspiratory wheezes Cardio Rate: tachycardic Rhythm: regular rhythm Pulses: radial pulses present GI Inspection: non-distended Palpation: soft Skin Lesions: no lesions Rashes: no rashes Neuro General: alert, awake and oriented x3 Extrem General: normal to inspection Psych Appearance: grossly normal and well kempt Course Orders Ordered: ED Orders 06/08/18 00:06 XR chest 1V Stat Discontinued Medications Albuterol (Ventolin) 2.5 mg INH NOW ONE Stop: 06/08/18 01:31 Last Admin: 06/08/18 01:36 Dose: 2.5 mg Albuterol/Ipratropium (Duoneb) 3 ml INH NOW ONE Stop: 06/08/18 00:06 Last Admin: 06/08/18 00:10 Dose: 3 ml Albuterol/Ipratropium (Duoneb) 3 ml INH NOW ONE Stop: 06/08/18 00:08 Last Admin: 06/08/18 00:13 Dose: 3 ml Dexamethasone (Decadron) 10 mg PO NOW ONE Stop: 06/08/18 00:06 Last Admin: 06/08/18 01:02 Dose: 10 mg Lorazepam (Ativan) 1 mg PO NOW ONE Stop: 06/08/18 00:54 Vital Signs - 8 hr 06/07/18 23:55 06/08/18 00:42 Temperature 98 F Pulse Rate 130 H 132 H Respiratory Rate 28 H 24 Blood Pressure 122/74 Blood Pressure [Left Wrist] 110/85 Pulse Oximetry 94 93 MDM - SOB/Dyspnea Imaging Data Chest x-ray: Radiologist's impression: Similar appearance to prior exam with patchy opacities in bilateral lungs an increased perihilar linear markings MDM Narrative Medical decision making narrative: Patient received multiple nebulizer treatments here in the emergency department. She also received steroids here. Her symptoms improved after the treatments. Chest x-ray today does show bilateral patchy infiltrates. This was evaluated by the radiologist. It appears that these are not new. When she was admitted here to the emergency department back in April she had the same infiltrates. Also had a CTA for evaluations of these. Patient's respiratory status improved while she was here. Sent home with a prescription for another dose of Decadron to take at 36 hr. I feel like a dose of antibiotics is not warranted in this case. I did inform her of the chest x-ray findings and informed her that she needed to follow up with her primary care doctor regarding this. Patient hit the nurse call but multiple times for multiple different things. When she just finished her last nebulizer treatment she stated that she wanted to leave because her mother was mad at her and waiting in the waiting room. She was given return precautions. Discharge Plan Departure Patient Disposition: Home Clinical Impression: Asthma Instructions: Asthma (Alternative Therapy), Asthma -- Adult Activity Restrictions/Additional Instructions: I recommend that you talk with your primary care doctor regarding your chest x- ray findings. I recommend that you talk with him regarding the indications for referral to see a gambling supervisor. Take the Decadron prescription 36 hr after discharge the emergency department. You can return to the emergency department at any point for new or worsening symptoms Prescriptions: New ibuprofen 800 mg tablet 800 mg PO BID-TID PRN (Reason: pain) Qty: 30 RF: 0 dexamethasone [Decadron] 4 mg tablet 16 mg PO .once Qty: 4 RF: 0 No Action clonazepam 1 mg Tablet 1 mg PO TID RF: 0 albuterol sulfate [Ventolin HFA] 90 mcg/actuation Hfa Aerosol Inhaler 2 puff INHALATION QID RF: 0 quetiapine 400 mg Tablet 400 mg PO DAILY RF: 0 levofloxacin 750 mg tablet 750 mg PO DAILY Qty: 5 RF: 0
--- NOTE | 2018-06-08 00:06 | DI.RAD.S_ITS ---
PROCEDURE: XR CHEST 1V INDICATIONS: dyspnea, eval for Pneumonia TECHNIQUE: One view of the chest was acquired. COMPARISON: [facility], CR, XR CHEST 2 VIEWS, 11/24/2017, 11:09. [facility], CR, XR CHEST 2 VIEWS, 10/20/2017, 17:11. [facility], CT, CT ANGIO CHEST PE, 02/14/2018, 14:53. [facility], CR, XR CHEST 2 VIEWS, 02/14/2018, 11:11. [facility], CR, XR CHEST 1V, 04/09/2018, 16:49. [facility], CR, XR CHEST 1V, 04/11/2018, 5:51. FINDINGS: Surgical changes and devices: None. Lungs and pleura: Patchy airspace opacities in the right lower lung zone and left upper lung zone are again noted, slightly increased. There is new airspace opacity in the lower lung zone. No pleural effusions or pneumothorax. Lungs are clear. Mediastinum: Mediastinal contours appear normal. Heart size is normal. Bones and chest wall: No suspicious bony lesions. Overlying soft tissues appear unremarkable. IMPRESSION: Slight worsening of bilateral multifocal pneumonia. Dictated by: Jose Evans M.D. on 06/08/2018 at 9:01 Approved by: Jose Evans M.D. on 06/08/2018 at 9:04
[2018-06-08] MEDS: ALBUTEROL/IPRATROPIUM 3 ML AMPUL INH ×2 (00:10→00:13)
[2018-06-08 00:42] VITALS: BP 110/85; PULSE 132; RESP 24; O2SAT 93
[2018-06-08] MEDS: DEXAMETHASONE 10 MG/ML VIAL PO (01:02)
[2018-06-08] MEDS: ALBUTEROL 2.5 MG/3 ML NEB (ADULT) INH (01:36)
[2018-06-08 02:05] VITALS: BP 116/79; PULSE 98; RESP 20; O2SAT 97
== END 2018-06-08 02:06 | disposition home or self-care (01) ==
PROVIDERS: Emergency Provider Emergency Medicine
DX: J45.909 Unspecified asthma, uncomplicated (principal)
CPT/HCPCS: 71045; 94640; 99283; 99284; J1100; J7613

== ENCOUNTER 2018-06-12 00:49 | Observation (INO) | payer MEDICARE, MEDICAID, SELFPAY ==
[2018-04-09 20:05] VITALS: BMI 35.4
[2018-06-12] VITALS (18 sets, daily range): BP systolic 108–128; BP diastolic 50–82; PULSE 72–98; RESP 16–27; TEMP 36.4–37.6; O2SAT 93–99; BMI 34.7; BMI 36.5
[2018-06-12] MEDS: ONDANSETRON 4 MG/2 ML INJ IV (01:31)
[2018-06-12] MEDS: levoFLOXacin 750 MG/150 ML PIGGYBACK 100 MG IV (01:33)
[2018-06-12] MEDS: SODIUM CHLORIDE 0.9% 1,000 ML 1000 ML IV (01:33)
[2018-06-12 01:42] LABS: Add Manual Diff / Slide Review NO; Basophils Absolute Auto 200 /uL (0-100); Basophils Percent Auto 0.9 % (0-2); Eosinophils Absolute Auto 100 /uL (0-450); Eosinophils Percent Auto 0.3 % (2-4); Hemoglobin 14.4 g/dL (12.0-16.0); Lymphocytes Absolute Auto 6300 /uL (1100-4500); Lymphocytes Percent Auto 29.2 % (25-40); Mean Corpuscular HGB Conc 34.2 % (30-36); Mean Corpuscular Hemoglobin 30.7 PG (26-34); Mean Corpuscular Volume 89.6 fL (80-100); Monocytes Absolute Auto 1700 /uL (0-900); Neutrophils Absolute Auto 13200 /uL (1500-7000); Neutrophils Percent Auto 61.6 % (50-75); Platelet Count 330 X10^3/uL (150-400); Red Blood Cell Count 4.69 X10^6/uL (4.0-5.2); Red Cell Distribution Width 13.5 % (11.6-14.8); White Blood Cell Count 21.5 X10^3/uL (4.5-11.0)
[2018-06-12 01:53] LABS: Alanine Aminotransferase 56 IU/L (9-52); Albumin 3.8 g/dL (3.5-5.0); Albumin Globulin Ratio 1.2 (1.0-2.8); Alkaline Phosphatase 103 U/L (38-126); Aspartate Aminotransferase 27 IU/L (14-36); Bilirubin Total 0.3 mg/dL (0.2-1.3); Blood Urea Nitrogen 12 mg/dL (7-17); Calcium 9.4 mg/dL (8.4-10.2); Carbon Dioxide 27 mmol/L (22-32); Chloride 104 mmol/L (98-107); Estimated Glomerular Filt Rate > 60.0 mL/min (>60); Globulin 3.2 g/dL (1.7-4.1); Glucose 126 mg/dL (70-100); HEMOLYSIS < 15 (0-50); Potassium 3.7 mmol/L (3.4-5.1); Sodium 141 mmol/L (137-145)
--- NOTE | 2018-06-12 02:10 | PC.NURSE ---
Pt developed red,swelling and pain on left arm at iv site. Immediately stopped levauin and removed IV,Dr Diaz aware. New IV srtarted,pt given benadryl,solu medrol and pepcid. Pts redness and swelling decreased immediately after stopping levaquin. Pt never had any difficulty breathing or swelling of mouth or tongue.
[2018-06-12 02:18] LABS: Influenza A and B by PCR Rapid Negative (Negative)
[2018-06-12 02:28] LABS: Procalcitonin < 0.05 ng/mL (<0.5)
[2018-06-12] MEDS: methylPREDNISolone 125 MG/2 ML VIAL IV (02:50)
[2018-06-12] MEDS: diphenhydrAMINE 50 MG/ML VIAL 25 MG IV (02:50)
[2018-06-12] MEDS: FAMOTIDINE 20 MG/50 ML PIGGYBACK 200 MG IV (02:50)
--- NOTE | 2018-06-12 02:51 | ED_ITS ---
HPI - URI/Sore Throat General Chief Complaint: Upper Respiratory Symptoms Stated Complaint: Cough, Vomiting Time Seen by Provider: 06/12/18 00:56 Source: patient, family and EMS Mode of arrival: EMS Limitations: no limitations History of Present Illness HPI Narrative: 37-year-old female smoker with known asthma presents by EMS for evaluation of worsening respiratory status and dehydration. She has been treated with azithromycin for the outpatient treatment of pneumonia and a recent chest x-ray shows a worsening bilobar pneumonia. The patient has had access to home oxygen since September but has been requiring around the clock for the past 4 days, this is a departure from her baseline. Furthermore she complains of severe throat pain and as a result has been unable to eat or drink and struggles taking all of her medications. She is dizzy, weak and lightheaded. Her primary care provider sent her here for evaluation. The patient has been battling a chronic pneumonia for quite some time but she is certainly taken a turn for the worse over the past few days. MD Complaint: cough and sore throat Onset (ago): day(s) Duration: constant Relieving factors: nothing Exacerbating factors: swallowing Description of mucous: clear Able to tolerate fluids by mouth: No Associated symptoms: cough and shortness of breath Related Data Home Medications Medication Instructions Recorded Confirmed albuterol sulfate [Ventolin HFA] 2 puff INHALATION QID 04/09/18 06/12/18 clonazepam 3 mg PO TID 04/09/18 06/12/18 quetiapine 400 mg PO DAILY 04/09/18 06/12/18 albuterol sulfate 1 neb INHALATION PRN PRN 06/12/18 06/12/18 Previous Rx's Medication Instructions Recorded ibuprofen 800 mg PO BID-TID PRN #30 tab 06/08/18 Allergies Allergy/AdvReac Type Severity Reaction Status Date / Time levofloxacin Allergy Severe Hives Verified 06/12/18 03:10 Penicillins Allergy Verified 06/12/18 01:14 tramadol Allergy Verified 06/12/18 01:14 Review of Systems Constitutional Denies chills, Denies fever(s), Reports lethargy, Reports poor appetite and Reports weakness Eyes Denies change in vision, Denies eye discharge, Denies irritation and Denies loss of vision ENT Ears, Nose, Mouth, and Throat: Denies change in voice, Denies neck pain, Reports sore throat and Reports throat swelling Cardiovascular Denies chest pain, Denies irregular heart rhythm, Denies lightheadedness, Denies palpitations, Denies dyspnea, Denies dyspnea on exertion and Denies orthopnea Respiratory Reports cough, Denies dyspnea, Denies dyspnea on exertion and Denies wheezing Gastrointestinal Gastrointestinal: Denies abdominal pain, Denies change in bowel habits, Denies diarrhea, Denies nausea and Denies vomiting Genitourinary Denies hematuria, Denies flank pain, Denies urinary incontinence and Denies urinary urgency Musculoskeletal Denies neck pain Integumentary/Breasts Denies pruritus, Denies erythema, Denies rash and Denies wounds Neurologic Denies confusion, Denies loss of vision and Reports weakness Psychiatric Denies anxiety, Denies confusion, Denies depression, Denies homicidal ideation and Denies suicidal ideation Endocrine Denies palpitations Hematologic/Lymphatic Denies easy bruising Allergic/Immunologic Reports throat swelling and Denies wheezing [facility] Medical History Asthma (Acute) Bipolar 1 disorder (Acute) Social History household members: none Smoking Status: Current some day smoker alcohol intake: never Exam Narrative Exam Narrative: GENERAL: A 37-year-old female chronically ill is acutely in distress HEAD: Atraumatic. Normocephalic. No temporal or scalp tenderness. EYES: Pupils equal round and reactive. Extraocular motions intact. No scleral icterus. No injection or drainage. ENT: Nose without bleeding, purulent drainage or septal hematoma. Throat erythematous with white exudate NECK: Trachea midline. No JVD or lymphadenopathy. Supple, nontender, no meningeal signs. CARDIOVASCULAR: Regular rate and rhythm without murmurs, gallops, or rubs. RESPIRATORY: faint crackles in B/L bases GASTROINTESTINAL: Abdomen soft, non-tender, nondistended. No hepato-splenomegaly , or palpable masses. No guarding. EXTREMITIES: No clubbing, cyanosis, or edema. No joint tenderness, effusion, or edema noted. BACK: Nontender without deformity or crepitance. No flank tenderness. NEURO: AOx3. SKIN: No rash or erythema. Initial Vital Signs Initial Vital Signs: Vital Signs Temperature 98.6 F 06/12/18 01:04 Pulse Rate 75 06/12/18 01:04 Respiratory Rate 20 06/12/18 01:04 Blood Pressure 108/74 06/12/18 01:04 Pulse Oximetry 97 06/12/18 01:04 Course Orders Ordered: ED Orders 06/12/18 01:30 Complete Blood Count AUTO DIFF Stat Comprehensive Metabolic Panel Stat Procalcitonin Stat 06/12/18 01:43 Throat Culture Stat 06/12/18 01:58 Influenza A and B by PCR Rapid Stat 06/12/18 03:06 XR chest 1V Stat Ondansetron HCl (Zofran) 4 mg IV Q4HR PRN PRN Reason: Nausea And Vomiting Last Admin: 06/12/18 01:31 Dose: 4 mg Discontinued Medications Acetaminophen/Codeine Phosphate (Tylenol Oral Aurea 120-12 Mg/5 Ml) 10 ml PO NOW ONE Stop: 06/12/18 03:14 Last Admin: 06/12/18 03:59 Dose: 10 ml Diphenhydramine HCl (Benadryl) 25 mg IV NOW ONE Stop: 06/12/18 02:11 Last Admin: 06/12/18 02:50 Dose: 25 mg Levofloxacin (Levaquin) 750 mg in 150 mls @ 100 mls/hr IV NOW ONE Stop: 06/12/18 02:48 Last Infusion: 06/12/18 02:27 Dose: 0 mls/hr Infusion: 06/12/18 02:10 Dose: 0 mls/hr Admin: 06/12/18 01:33 Dose: 100 mls/hr Sodium Chloride (Normal Saline 0.9%) 1,000 mls @ 1,000 mls/hr IV BOLUS ONE Stop: 06/12/18 02:18 Last Infusion: 06/12/18 02:15 Dose: 0 mls/hr Admin: 06/12/18 01:33 Dose: 1,000 mls/hr Famotidine (Pepcid) 20 mg in 50 mls @ 200 mls/hr IV NOW ONE Stop: 06/12/18 02:24 Last Infusion: 06/12/18 03:13 Dose: 0 mls/hr Admin: 06/12/18 02:50 Dose: 200 mls/hr Fluconazole (Diflucan) 200 mg in 100 mls @ 100 mls/hr IV NOW ONE Stop: 06/12/18 03:51 Last Admin: 06/12/18 04:00 Dose: 50 mls/hr Doxycycline Hyclate 100 mg/ (Sodium Chloride) 100 mls @ 100 mls/hr IV NOW ONE Stop: 06/12/18 03:03 Ketorolac Tromethamine (Toradol) 15 mg IV NOW ONE Stop: 06/12/18 02:53 Last Admin: 06/12/18 03:10 Dose: 15 mg Methylprednisolone (Solu-Medrol 125 Mg Vial) 125 mg IV NOW ONE Stop: 06/12/18 02:11 Last Admin: 06/12/18 02:50 Dose: 125 mg Consultations Consultation #1: Dr. Mattson happy to accept on hospitalist service. Requests Lactate, Respiratory Panel Vital Signs - 8 hr 06/12/18 01:04 06/12/18 01:14 Temperature 98.6 F 98.6 F Pulse Rate 75 75 Respiratory Rate 20 20 Blood Pressure 108/74 Blood Pressure [Left Arm] 108/74 Pulse Oximetry 97 97 MDM - URI/Sore Throat Differential Diagnosis Differential diagnosis: Likely upper respiratory infection, croup, otitis media , sinusitis, viral infection, bronchitis and influenza Medical Records Attestation: I reviewed the patient's medical records. Lab Data Attestation: I reviewed the patient's lab results. Result diagrams: 06/12/18 01:30 06/12/18 01:30 Lab Results 06/12/18 06/12/18 06/12/18 Range/Units 01:30 01:30 01:30 WBC 21.5 H (4.5-11.0) X10^3/uL RBC 4.69 (4.0-5.2) X10^6/uL Hgb 14.4 (12.0-16.0) g/dL Hct 42.0 (36-46) % MCV 89.6 (80-100) fL MCH 30.7 (26-34) PG MCHC 34.2 (30-36) % RDW 13.5 (11.6-14.8) % Plt Count 330 (150-400) X10^3/uL Neut % (Auto) 61.6 (50-75) % Lymph % (Auto) 29.2 (25-40) % [place] % (Auto) 8.0 (3-14) % Eos % (Auto) 0.3 L (2-4) % Baso % (Auto) 0.9 (0-2) % Neut # (Auto) 61653 H (7493-6526) /uL Lymph # (Auto) 6300 H (8312-6893) /uL Hardee # (Auto) 1700 H (0-900) /uL Eos # (Auto) 100 (0-450) /uL Baso # (Auto) 200 H (0-100) /uL Sodium 141 (137-145) mmol/L Potassium 3.7 (3.4-5.1) mmol/L Chloride 104 (98-107) mmol/L Carbon Dioxide 27 (22-32) mmol/L BUN 12 (7-17) mg/dL Creatinine 0.60 (0.52-1.04) mg/dL Estimated GFR > 60.0 (>60) mL/min BUN/Creatinine Ratio 20.0 (6-22) Glucose 126 H (70-100) mg/dL Calcium 9.4 (8.4-10.2) mg/dL Total Bilirubin 0.3 (0.2-1.3) mg/dL AST 27 (14-36) IU/L ALT 56 H (9-52) IU/L Alkaline Phosphatase 103 (38-126) U/L Total Protein 7.0 (6.3-8.2) g/dL Albumin 3.8 (3.5-5.0) g/dL Globulin 3.2 (1.7-4.1) g/dL Albumin/Globulin Ratio 1.2 (1.0-2.8) Procalcitonin < 0.05 (<0.5) ng/mL Influenza A & B (PCR) (Negative) 06/12/18 Range/Units 01:58 WBC (4.5-11.0) X10^3/uL RBC (4.0-5.2) X10^6/uL Hgb (12.0-16.0) g/dL Hct (36-46) % MCV (80-100) fL MCH (26-34) PG MCHC (30-36) % RDW (11.6-14.8) % Plt Count (150-400) X10^3/uL Neut % (Auto) (50-75) % Lymph % (Auto) (25-40) % Hardee % (Auto) (3-14) % Eos % (Auto) (2-4) % Baso % (Auto) (0-2) % Neut # (Auto) (7829-7865) /uL Lymph # (Auto) (2629-3094) /uL Hardee # (Auto) (0-900) /uL Eos # (Auto) (0-450) /uL Baso # (Auto) (0-100) /uL Sodium (137-145) mmol/L Potassium (3.4-5.1) mmol/L Chloride (98-107) mmol/L Carbon Dioxide (22-32) mmol/L BUN (7-17) mg/dL Creatinine (0.52-1.04) mg/dL Estimated GFR (>60) mL/min BUN/Creatinine Ratio (6-22) Glucose (70-100) mg/dL Calcium (8.4-10.2) mg/dL Total Bilirubin (0.2-1.3) mg/dL AST (14-36) IU/L ALT (9-52) IU/L Alkaline Phosphatase (38-126) U/L Total Protein (6.3-8.2) g/dL Albumin (3.5-5.0) g/dL Globulin (1.7-4.1) g/dL Albumin/Globulin Ratio (1.0-2.8) Procalcitonin (<0.5) ng/mL Influenza A & B (PCR) Negative (Negative) Point of Care Testing Rapid Strep A Negative MDM Narrative Medical decision making narrative: 37F asthmatic with increased oxygen requirements and worsening overall clinical status despite outpatient treatment. CXR unchanged, patient not tolerating oral hydration or food due to painful throat. Strep -, exudate wipes off on culture, suspect ryder. Discharge Plan Departure Prescriptions: No Action ibuprofen 800 mg tablet 800 mg PO BID-TID PRN (Reason: pain) Qty: 30 RF: 0 albuterol sulfate 2.5 mg /3 mL (0.083 %) solution for nebulization 1 neb Inhalation PRN PRN (Reason: SOB) RF: 0 clonazepam 1 mg Tablet 3 mg PO TID RF: 0 albuterol sulfate [Ventolin HFA] 90 mcg/actuation Hfa Aerosol Inhaler 2 puff INHALATION QID RF: 0 quetiapine 400 mg Tablet 400 mg PO DAILY RF: 0
--- NOTE | 2018-06-12 03:01 | PC.NURSE ---
Pt has white in mouth,tongue,throat that appears to be thrush. Pt having extreme pain
--- NOTE | 2018-06-12 03:06 | DI.RAD.S_ITS ---
PROCEDURE: XR CHEST 1V INDICATIONS: cough, pneumonia TECHNIQUE: One view of the chest was acquired. COMPARISON: [facility], CR, XR CHEST 1V, 06/08/2018, 0:30. FINDINGS: Surgical changes and devices: None. Lungs and pleura: No pleural effusions or pneumothorax. Mildly increased vascular markings and bilateral hilar region are seen with mildly thickened bronchial you. No definite focal infiltrate. Mediastinum: Mediastinal contours appear normal. Heart size is normal. Bones and chest wall: No suspicious bony lesions. Overlying soft tissues appear unremarkable. IMPRESSION: Suggestion of reactive airway disease such as bronchitis or asthma. No focal infiltrate. Dictated by: Brandon Christensen M.D. on 06/12/2018 at 10:13 Approved by: Brandon Christensen M.D. on 06/12/2018 at 10:14
[2018-06-12] MEDS: KETOROLAC 60 MG/2 ML VIAL 15 MG IV (03:10)
[2018-06-12] MEDS: ACETAMINOPHEN/CODEINE SOLN 5 ML SOLUTION 10 ML PO (03:59)
[2018-06-12] MEDS: FLUCONAZOLE 200 MG/100 ML PIGGYBACK 50 MG IV (04:00)
[2018-06-12] MEDS: LORazepam 2 MG/ML SYRINGE 1 MG IV (04:54)
[2018-06-12] MEDS: SODIUM CHLORIDE 0.9% 1,000 ML 125 ML IV (05:24)
[2018-06-12 05:41] LABS: Lactate (Lactic Acid) 1.6 mmol/L (0.7-2.1)
[2018-06-12] MEDS: DOXYCYCLINE 100 MG in SODIUM CHLORIDE 0.9% 100 ML IV ×2 (05:57→17:43)
--- NOTE | 2018-06-12 06:29 | PC.NURSE ---
Pt. admitted from ER for pneumonia, arrived to the unit via stretcher. Pt. is alert and oriented, on 02 at 4L NC with sats of 97%. Lungs sounds with exp. ronchi and few scattered wheezes. Pt. is reluctant to take deep breaths as it makes her cough and hurts her throat. Noted pt. to have exudate in her throat, fluconazole IV started in ER, doxycycline now infusing at 50ml/hr due to IV site burning. IV site does not appear to be infiltrated. Pt. stated that she had fallen recently at home due to hypoxia. Instructed pt. to bed control use, telephone, and to use call light if needed anything and not to get up without any assistance. Personal belongings within reach.
--- NOTE | 2018-06-12 10:28 | PM.HP.1 ---
History of Present Illness Date Patient Seen: 06/12/18 Time Patient Seen: 09:00 Chief complaint: Cough, Vomiting Narrative: Gege garcia is a 37 year old lady with a complex pulmonary and psychological history who is well known to me and my outpatient clinic. She presented with severe esophageal pain described as daggers stabbing my throat. She is an asthmatic and on PRN albuterol without a spacer. Upon examination in the ED she was found to have a white exudate in her posterior pharynx consistent with ryder esophagitis. She also had dyspnea, the inability to take deep breaths due to coughing, a subjective fever, and leukocytosis of 21.5 thousand in the ED. She is a 1 pack per day smoker, on 2L of O2 at home chronically. She has been intubated twice before. Her chest xray in the ED was read as Suggestion of reactive airway disease such as bronchitis or asthma. No focal infiltrate. My reading of her xray in comparison to previous xray on 06/08/18 shows no significant changes. Her throat culture is pending and viral serology is negative for all tested virus. Her personality is hypomanic at best of times. She lives alone in [place] with close family support. Patient History Medical History Molar (Resolved) Asthma (Acute) Bipolar 1 disorder (Acute) Surgical History S/P ureteral stent placement (Acute) Family & Social History Social History: household members none Prior Living Arrangements Apartment/Condo Lives with a pug/terrier mix Safety & Behavioral: Feels Safe in Current Yes Environment Been Physically Hurt or No Threatened By a Person Suicidal Ideation Description None Suicide Plan Description No Plan Tobacco & Substance use: Tobacco type cigarettes Smoking Status Current some day smoker Smoking packs per day 1 alcohol intake former alcohol intake frequency 0-2 drinks per day Substance Use Type does not use Meds Home Medications Medication Instructions Recorded Confirmed Type albuterol sulfate [Ventolin HFA] 2 puff INHALATION QID 04/09/18 06/12/18 History clonazepam 3 mg PO TID 04/09/18 06/12/18 History quetiapine 400 mg PO DAILY 04/09/18 06/12/18 History ibuprofen 800 mg PO BID-TID PRN #30 tab 06/08/18 06/12/18 Rx albuterol sulfate 1 neb INHALATION PRN PRN 01/13/19 01/13/19 History cyclobenzaprine 5 mg PO BID 06/12/18 06/12/18 History Allergies Allergy/AdvReac Type Severity Reaction Status Date / Time levofloxacin Allergy Severe Hives Verified 06/12/18 03:10 Penicillins Allergy Verified 06/12/18 01:14 tramadol Allergy Verified 06/12/18 01:14 Review of Systems Constitutional Constitutional: Reports fever(s) and Denies headache(s) Eyes Eyes: Denies eye pain, Denies seeing flashes and Denies sensitivity to light ENT Ears, Nose, Mouth, and Throat: No dizziness, No dry mouth and No headache(s) Cardiovascular Cardiovascular: Denies chest pain, Denies chest pain at rest, Denies fainting, Denies generalize swelling, Reports shortness of breath and Reports shortness of breath with activity Respiratory Respiratory: Reports chest congestion, Reports cough, Reports dyspnea, Reports dyspnea on exertion and Reports wheezing Gastrointestinal Gastrointestinal: Denies abdominal pain, Denies change in bowel habits, Denies nausea and Denies vomiting Genitourinary Genitourinary: Reports system reviewed and no additional complaints, except as documented Musculoskeletal Musculoskeletal: Denies myalgias and Denies arthralgias Neurologic Neurologic: Denies confusion, Denies dizziness, Denies syncope and Denies headache(s) Psychiatric Psychiatric: Reports anxiety and Denies confusion Comments: She states a history of bipolar and that she is manic, generalized anxiety, and separation anxiety from her family in [place] who cannot visit this hospital due to length of driving. Endocrine Endocrine: Denies change in body appearance, Denies cold intolerance and Denies heat intolerance Hematologic/Lymphatic Hematologic/Lymphatic: Denies easy bleeding, Denies easy bruising and Denies lymphadenopathy Allergic/Immunologic Allergic/Immunologic: Reports urticaria, Reports seasonal rhinorrhea and Reports wheezing Exam Vital Signs (past 8 hours): - 06/12/18 04:56 06/12/18 05:10 06/12/18 07:41 Temperature 97.8 F Pulse Rate 90 72 Respiratory Rate 27 H 20 Blood Pressure 108/56 L 109/70 Pulse Oximetry 97 97 98 06/12/18 07:42 06/12/18 07:58 06/12/18 09:27 Temperature 97.5 F L Pulse Rate 90 Respiratory Rate 18 Blood Pressure 123/50 L Pulse Oximetry 96 98 97 Fraction of Inspired Oxygen 28 Oxygen Delivery Method Nasal Cannula Oxygen Flow Rate 2 Const General: cooperative, healthy appearing and anxious Nutritional Appearance: obese morbidly obese Orientation: alert and oriented x3 HENAK Head: normal to inspection, normocephalic and atraumatic Ears: hearing grossly normal bilaterally Nose: external nose normal Face and sinus: normal facial exam Mouth: oral mucosae normal and moist mucous membranes Throat: other (white 1mm round lesions in the posterior pharynx with surrounding erythema consistent with ryder esophagitis.) Eyes General: appearance normal, both eyes and all related structures Alignment and Position: alignment normal Pupils: PERRL EOM: EOM intact bilaterally Direct ophthalmoscopy: normal light reflex and no photophobia Neck Neck: normal visual inspection and full ROM Thyroid: thyroid normal Resp Effort & Inspection: audible wheezes, cough and labored Auscultation: clear to auscultation bilaterally, no rales, no rhonchi, wheezes and no rubs Tactile Fremitus: tactile fremitus absent Cardio Palpation: normal PMI Rate: regular rate Rhythm: regular rhythm Heart Sounds: S1 normal, S2 normal, no click, no gallops, no murmurs and no rubs GI Inspection: normal to inspection Palpation: soft Percussion: normal to percussion Auscultation: normal bowel sounds Back/Spine/Pelvis Back: normal to inspection Skin General: no rashes or lesions noted Neuro General: alert, awake, oriented x3 and CN's II-XI intact bilaterally Speech: other (slightly pressured) Psych Speech and Movement: agitated and pressured speech Mood: anxious mood and manic mood Attitude: cooperative Objective Labs Result Diagrams: 06/12/18 01:30 06/12/18 01:30 Labs: Laboratory Results - last 24 hr 06/12/18 06/12/18 06/12/18 01:30 01:30 01:30 WBC 21.5 H RBC 4.69 Hgb 14.4 Hct 42.0 MCV 89.6 MCH 30.7 MCHC 34.2 RDW 13.5 Plt Count 330 Neut % (Auto) 61.6 Lymph % (Auto) 29.2 [place] % (Auto) 8.0 Eos % (Auto) 0.3 L Baso % (Auto) 0.9 Neut # (Auto) 26914 H Lymph # (Auto) 6300 H [place] # (Auto) 1700 H Eos # (Auto) 100 Baso # (Auto) 200 H Sodium 141 Potassium 3.7 Chloride 104 Carbon Dioxide 27 BUN 12 Creatinine 0.60 Estimated GFR > 60.0 BUN/Creatinine Ratio 20.0 Glucose 126 H Lactate Calcium 9.4 Total Bilirubin 0.3 AST 27 ALT 56 H Alkaline Phosphatase 103 Total Protein 7.0 Albumin 3.8 Globulin 3.2 Albumin/Globulin Ratio 1.2 Procalcitonin < 0.05 Influenza A & B (PCR) 06/12/18 06/12/18 01:58 05:01 WBC RBC Hgb Hct MCV MCH MCHC RDW Plt Count Neut % (Auto) Lymph % (Auto) [place] % (Auto) Eos % (Auto) Baso % (Auto) Neut # (Auto) Lymph # (Auto) [place] # (Auto) Eos # (Auto) Baso # (Auto) Sodium Potassium Chloride Carbon Dioxide BUN Creatinine Estimated GFR BUN/Creatinine Ratio Glucose Lactate 1.6 Calcium Total Bilirubin AST ALT Alkaline Phosphatase Total Protein Albumin Globulin Albumin/Globulin Ratio Procalcitonin Influenza A & B (PCR) Negative Assessment & Plan Plan: Assessment/Plan Narrative: 1. Reactive airway disease - chronic asthma, possibly due to her smoking history, allergies to her pet dog, living in an old apartment, or other. - Respiratory therapy for nebulized albuterol treatments four times per day - Start IV solumedrol steroids to decrease inflammation and reactivity of airway. - doxycycline for possible pneumonia. 2. ryder esophagitis - start fluconazole IV as antifungal - magic mouthwash given for symptom relief 3. Bipolar - continue home medications of clonazepam, cyclobenzaprine, and quetiapine for maintanance therapy. 4. Anxiety - continue home clonazepam Quality VTE Deep Vein Thrombosis/Pulmonary Embolism Present on Admission: No
--- NOTE | 2018-06-12 11:59 | CM.IDA ---
Discharge Planning/Care Management CM Discharge Assessment Start: 06/12/18 11:51 Freq: Status: Active Protocol: Document 06/12/18 11:51 BILL (Rec: 06/12/18 11:59 BILL [id number]) Discharge Planning Assessment Assigned Cut To Length Operator JOSE Butts DPOA/Assigned Designee Name irina Lau Contact Information [phone] Advance Directives? No Advance Directives on File No History Provided By Patient Medical Record Prior Living Arrangements Apartment/Condo Household Members none Type of transporation used prior to Relies on Others admit Comment Mom transports Independent with ADL's Yes: Does not drive, otherwise indp in all ADLs Is patient alert and oriented? Yes: Bipolar Disorder Barriers to Discharge No Comment Reviewed chart. PMH includes Bipolar Disorder, Asthma and longstanding h/o reocccuring pneumonia. Met w/pt briefly, she was in conversation w/Medical student Gerald and states who are you and what can you do for me? upon my arrival. Explained role. Pt asks if this TRANSFUSION AIDE can help transfer her, explained that was the physician's role. Pt saying things like Dr Rajput must not now me very well... and I'm going to punch him in the face. Pt would like to be transferred. Pt discussed in multi- disciplinary rounds. Pt is a long standing patient of Dr Rajput's in the outpt setting . Pt is functional at home, lives alone, mom can assist w/ transportation. Pt has been dependent on institutions her entire life per Dr aRjput. She is not managed by a psychiatrist at this time. Pt is in a constant state of olegario, no matter the meds taken, and tends to not be pleased w/care, per Dr Rajput . Dr Rajput denies SW needs for this pt. Upon medical stability, pt is planned to return home w/assist from her family. TRANSFUSION AIDE team will plan to follow closely. Discharge Plan Home Transportation Arrangement Likely family Referrals Initiated None needed Additional Comment Following closely. Whiteboard Updated in Patient Room with Yes name and ext. # of Cut To Length Operator Review Status In Process
[2018-06-12 12:06] LABS: Adenovirus Not Detected (Not Detect); Bordetella pertussis Not Detected (Not Detect); Chlamydophila pneumoniae Not Detected (Not Detect); Coronavirus 229E Not Detected (Not Detect); Coronavirus HKU1 Not Detected (Not Detect); Coronavirus NL 63 Not Detected (Not Detect); Coronavirus OC43 Not Detected (Not Detect); Human Metapneumovirus Not Detected (Not Detect); Human Rhinovirus/Enterovirus Not Detected (Not Detect); Influenza A Not Detected (Not Detect); Influenza B Not Detected (Not Detect); Mycoplasma pneumoniae Not Detected (Not Detect); Parainfluenza Virus 1 Not Detected (Not Detect); Parainfluenza Virus 2 Not Detected (Not Detect); Parainfluenza Virus 3 Not Detected (Not Detect); Parainfluenza Virus 4 Not Detected (Not Detect); Respiratory Syncytial Virus Not Detected (Not Detect)
[2018-06-12] MEDS: CYCLOBENZAPRINE 5 MG TABLET PO ×2 (12:10→21:07)
[2018-06-12] MEDS: LIDOCAINE VISCOUS 2% 30 ML, MAG HYDROX/ALUMINUM/SIMETH SUS 30 ML, NYSTATIN SUSP 3,000,0... MM ×2 (12:13→17:43)
[2018-06-12] MEDS: ALBUTEROL 2.5 MG/3 ML NEB (ADULT) INH ×5 (12:30→23:53)
[2018-06-12] MEDS: clonazePAM 0.5 MG TABLET 1 MG PO ×2 (13:21→21:08)
[2018-06-12] MEDS: methylPREDNISolone 125 MG/2 ML VIAL 60 MG IV ×2 (14:31→22:12)
[2018-06-12] MEDS: ALBUTEROL HFA 60 PUFF/8 GM INH INH ×2 (15:20→21:41)
[2018-06-12] MEDS: LORazepam 0.5 MG TABLET PO ×2 (17:42→23:40)
[2018-06-12] MEDS: QUETIAPINE 200 MG TABLET 400 MG PO (21:07)
[2018-06-12] MEDS: FLUCONAZOLE 100 MG/50 ML PIGGYBACK IV (22:12)
[2018-06-13] VITALS (7 sets, daily range): BP systolic 113–117; BP diastolic 75–81; PULSE 89–100; RESP 16–18; TEMP 36.7–37.1; O2SAT 95–97
--- NOTE | 2018-06-13 00:29 | PC.NURSE ---
C/O dyspnea @ rest, 2 liters sat. 95%. Also C/O anxiety, requested Lorazepam 0.5 mg PO admin. RT. here to see pt. will cont. POC & monitor.
[2018-06-13] MEDS: LIDOCAINE VISCOUS 2% 30 ML, MAG HYDROX/ALUMINUM/SIMETH SUS 30 ML, NYSTATIN SUSP 3,000,0... MM (02:17)
[2018-06-13] MEDS: KETOROLAC 10 MG TABLET PO (02:26)
[2018-06-13] MEDS: ALBUTEROL 2.5 MG/3 ML NEB (ADULT) INH (04:50)
[2018-06-13 05:48] LABS: Add Manual Diff / Slide Review NO; Basophils Absolute Auto 0 /uL (0-100); Basophils Percent Auto 0.2 % (0-2); Eosinophils Absolute Auto 0 /uL (0-450); Hematocrit 43.4 % (36-46); Hemoglobin 14.7 g/dL (12.0-16.0); Lymphocytes Absolute Auto 1400 /uL (1100-4500); Lymphocytes Percent Auto 6.5 % (25-40); Mean Corpuscular HGB Conc 33.9 % (30-36); Mean Corpuscular Hemoglobin 30.6 PG (26-34); Mean Corpuscular Volume 90.4 fL (80-100); Monocytes Absolute Auto 900 /uL (0-900); Monocytes Percent Auto 4.5 % (3-14); Neutrophils Absolute Auto 18600 /uL (1500-7000); Neutrophils Percent Auto 88.8 % (50-75); Platelet Count 287 X10^3/uL (150-400); Red Cell Distribution Width 13.6 % (11.6-14.8)
[2018-06-13] MEDS: SODIUM CHLORIDE 0.9% FLUSH 10 ML IV ×2 (05:51→07:52)
[2018-06-13] MEDS: DOXYCYCLINE 100 MG in SODIUM CHLORIDE 0.9% 100 ML IV (05:53)
[2018-06-13 05:55] LABS: Alanine Aminotransferase 43 IU/L (9-52); Albumin 3.4 g/dL (3.5-5.0); Albumin Globulin Ratio 1.1 (1.0-2.8); Alkaline Phosphatase 118 U/L (38-126); Aspartate Aminotransferase 22 IU/L (14-36); Bilirubin Total 0.3 mg/dL (0.2-1.3); Blood Urea Nitrogen 12 mg/dL (7-17); Calcium 9.5 mg/dL (8.4-10.2); Carbon Dioxide 24 mmol/L (22-32); Chloride 102 mmol/L (98-107); Estimated Glomerular Filt Rate > 60.0 mL/min (>60); Globulin 3.1 g/dL (1.7-4.1); HEMOLYSIS < 15 (0-50); Potassium 4.3 mmol/L (3.4-5.1); Sodium 137 mmol/L (137-145); Total Protein 6.5 g/dL (6.3-8.2)
[2018-06-13 06:00] LABS: Glucose 506 mg/dL (70-100)
[2018-06-13] MEDS: LORazepam 0.5 MG TABLET PO (06:04)
--- NOTE | 2018-06-13 06:06 | PC.NURSE ---
@0605 I walked in to check patient's weight. Patient said that nurse yelled at me. She doesn't understand this always happens. I told her you know, high blood sugars are important.
[2018-06-13] MEDS: INSULIN ASPART 100 UNIT/ML INSULN PEN SUBCUT (06:29)
[2018-06-13 06:32] LABS: Procalcitonin < 0.05 ng/mL (<0.5)
[2018-06-13] MEDS: SODIUM CHLORIDE 0.9% 1,000 ML 100 ML IV (07:12)
--- NOTE | 2018-06-13 07:36 | PC.NURSE ---
IN HOME SALES CONSULTANT aware of lab. glucose of 506. 10 units of Novolog admin. SQ.
--- NOTE | 2018-06-13 07:48 | PC.NURSE ---
Addendum entered by Sandy Lozada R.N. 06/13/18 08:49: Pt resting, gave 10 units regular insulin IV as ordered. Sats on RA 94-95%. Original Note: Recheck blood sugar finger stick 427, Dr Mattson notified new orders received. IVF stopped as ordered.Sats on 2L 97% decreased O2 to 1L.
[2018-06-13] MEDS: clonazePAM 0.5 MG TABLET 1 MG PO (07:52)
[2018-06-13] MEDS: CYCLOBENZAPRINE 5 MG TABLET PO (07:52)
[2018-06-13] MEDS: INSULIN REGULAR 100 UNIT/ML 3 ML VIAL 10 UNIT IV (08:33)
--- NOTE | 2018-06-13 10:19 | PM.DS.1 ---
History of Present Illness Date Patient Seen: 06/12/18 Chief complaint: Cough, Vomiting Narrative: Written by Dr. Rjaput: Gege garcia is a 37 year old lady with a complex pulmonary and psychological history who is well known to me and my outpatient clinic. She presented with severe esophageal pain described as daggers stabbing my throat. She is an asthmatic and on PRN albuterol without a spacer. Upon examination in the ED she was found to have a white exudate in her posterior pharynx consistent with ryder esophagitis. She also had dyspnea, the inability to take deep breaths due to coughing, a subjective fever, and leukocytosis of 21.5 thousand in the ED. She is a 1 pack per day smoker, on 2L of O2 at home chronically. She has been intubated twice before. Her chest xray in the ED was read as Suggestion of reactive airway disease such as bronchitis or asthma. No focal infiltrate. My reading of her xray in comparison to previous xray on 06/08/18 shows no significant changes. Her throat culture is pending and viral serology is negative for all tested virus. Her personality is hypomanic at best of times. She lives alone in [place] with close family support. Discharge Providers Date of admission: 06/12/18 04:55 Discharge provider: Ying Mattson DO Discharge Date: 06/13/18 Summary Discharge Diagnosis: 1. Acute asthma exacerbation, present on admission. Resolved. 2. Acute ryder esophagitis , present on admission. Resolving. 3. Chronic respiratory failure requiring oxygen, present on admission. Stable. 4. Chronic leukocytosis, present on admission. Stable. 5. Acute hyperglycemia secondary to steroid use, not present on admission. Resolving. 6. Bipolar, present on admission. Stable. 7. Anxiety, present on admission. Stable. 8. Tobacco use disorder, newly in remission, present on admission. Stable. Hospital Course: Gege Garcia is a 37-year-old female with a past medical history significant for bipolar disorder, anxiety, and asthma who presented for throat pain and worsening shortness of breath. 1. Acute asthma exacerbation, present on admission. Resolved. -Thought initially to have failed outpatient treatment for pneumonia but upon further review and interpretation of chest x-ray by me there is no infiltrate or acute pulmonary process. Patient had acute asthma exacerbation likely due to her smoking history, allergies to her pet dog, living in an old apartment, or other. -Respiratory viral PCR negative. -Continued nebulizer treatments 4 times a day while awake. -Patient received Solu-Medrol 125 mg IV x1 in the ED. Continued Solu-Medrol 60 mg IV for 2 doses. Discontinued at time of discharge. -Discontinued doxycycline which was started for possible pneumonia. 2. Chronic respiratory failure requiring oxygen, present on admission. Stable. -Patient is on 2 L oxygen at home. She was up to 4 L upon admission and this was titrated off during hospitalization with oxygen saturations remaining at 96%. Re-evaluate as an outpatient for continued necessity. 3. Acute ryder esophagitis , present on admission. Resolving. -Secondary to chronic steroid use. -Started fluconazole IV as antifungal and discharged on clotrimazole maryan 5 times a day for 1 week. -Received magic mouthwash for symptom relief. 4. Chronic leukocytosis, present on admission. Stable. -Secondary to chronic steroid use for asthma exacerbations. Does not represent acute infectious process. 5. Acute hyperglycemia secondary to steroid use, not present on admission. Resolving. -Secondary to IV steroid use for asthma exacerbation. -Patient received correctional scale insulin and regular insulin 10 units IV x1 with improvement in blood glucose. 6. Bipolar, present on admission. Stable. -Continued home medications of clonazepam, cyclobenzaprine, and quetiapine for maintenance therapy. 7. Anxiety, present on admission. Stable. -Continued home clonazepam. 8. Tobacco use disorder, newly in remission, present on admission. Stable. -Counseled the patient on smoking cessation and she reports she has quit for 7 days. -Continued home Nicoderm patch as needed for nicotine withdraw. Status at Discharge Functional status at discharge: independent ambulation Overall status at discharge: patient is back to baseline Exam Vital Signs (past 8 hours): - 06/13/18 04:51 06/13/18 05:00 06/13/18 07:21 Temperature 98.7 F Pulse Rate 89 100 H Respiratory Rate 18 16 Blood Pressure 113/75 Pulse Oximetry 96 96 97 06/13/18 07:47 Temperature 98.0 F Pulse Rate 91 H Respiratory Rate 18 Blood Pressure 117/81 Pulse Oximetry 95 Fraction of Inspired Oxygen 28 Oxygen Delivery Method Room Air Oxygen Flow Rate 2 Narrative Exam Narrative: General: Young female sitting in bed and in no acute distress, well-developed, well-nourished, appropriately interactive. HEENT: Normocephalic, atraumatic. External ears without defect. Pupils equal, round, and reactive to light and accommodation. Anicteric sclerae, moist conjunctivae, and no lid lag. Oropharynx with scattered white exudate. Moist mucosa. Neck: Supple with full range of motion. No lymphadenopathy or thyromegaly. Cardiovascular: Regular rate and rhythm without murmurs, rubs, or gallops appreciated Pulmonary: Clear to auscultation bilaterally without crackles, wheezes, or rhonchi. Normal respiratory effort with no use of accessory muscles. Abdomen: Soft, bowel sounds present, nontender, nondistended. No hepatosplenomegaly or masses appreciated. Extremities: No clubbing, cyanosis, or edema. Skin: Normal temperature, turgor, and texture; no rash, ulcers, or subcutaneous nodules appreciated. Neurological: Cranial nerves grossly intact. Psychiatric: Normal mood and affect. Alert and oriented to person, place, and time. Objective Labs Result Diagrams: 06/13/18 05:01 06/13/18 05:01 Labs: Laboratory Results - last 24 hr 06/12/18 06/13/18 06/13/18 10:10 05:01 05:01 WBC 21.0 H RBC 4.80 Hgb 14.7 Hct 43.4 MCV 90.4 MCH 30.6 MCHC 33.9 RDW 13.6 Plt Count 287 Neut % (Auto) 88.8 H D Lymph % (Auto) 6.5 L D [place] % (Auto) 4.5 Eos % (Auto) 0.0 L Baso % (Auto) 0.2 Neut # (Auto) 56866 H Lymph # (Auto) 1400 [place] # (Auto) 900 Eos # (Auto) 0 Baso # (Auto) 0 Sodium Potassium Chloride Carbon Dioxide BUN Creatinine Estimated GFR BUN/Creatinine Ratio Glucose Calcium Total Bilirubin AST ALT Alkaline Phosphatase Total Protein Albumin Globulin Albumin/Globulin Ratio Procalcitonin < 0.05 Chlamy pneumoniae PCR Not detected Adenovirus (PCR) Not detected B.parapertussis DNA PCR Not detected Coronavirus OC43 (PCR) Not detected Coronavirus HKU1 (PCR) Not detected Coronavirus 229E (PCR) Not detected Coronavirus NL63 (PCR) Not detected Human Metapneumovir PCR Not detected Influenza Type A (PCR) Not detected Influenza Type B (PCR) Not detected M. pneumoniae (PCR) Not detected Parainfluenza 1 (PCR) Not detected Parainfluenza 2 (PCR) Not detected Parainfluenza 3 (PCR) Not detected Parainfluenza 4 (PCR) Not detected RSV (PCR) Not detected Entero/Rhino (PCR) Not detected 06/13/18 05:01 WBC RBC Hgb Hct MCV MCH MCHC RDW Plt Count Neut % (Auto) Lymph % (Auto) [place] % (Auto) Eos % (Auto) Baso % (Auto) Neut # (Auto) Lymph # (Auto) [place] # (Auto) Eos # (Auto) Baso # (Auto) Sodium 137 Potassium 4.3 Chloride 102 Carbon Dioxide 24 BUN 12 Creatinine 0.60 Estimated GFR > 60.0 BUN/Creatinine Ratio 20.0 Glucose 506 H* D Calcium 9.5 Total Bilirubin 0.3 AST 22 ALT 43 Alkaline Phosphatase 118 Total Protein 6.5 Albumin 3.4 L Globulin 3.1 Albumin/Globulin Ratio 1.1 Procalcitonin Chlamy pneumoniae PCR Adenovirus (PCR) B.parapertussis DNA PCR Coronavirus OC43 (PCR) Coronavirus HKU1 (PCR) Coronavirus 229E (PCR) Coronavirus NL63 (PCR) Human Metapneumovir PCR Influenza Type A (PCR) Influenza Type B (PCR) M. pneumoniae (PCR) Parainfluenza 1 (PCR) Parainfluenza 2 (PCR) Parainfluenza 3 (PCR) Parainfluenza 4 (PCR) RSV (PCR) Entero/Rhino (PCR) Discharge Plan Discharge Plan Patient Disposition: Home Discharge comment: You are being discharged home. Please follow-up with your PCP, Dr. Rajput, in the next 1-2 weeks for hospital follow-up for asthma exacerbation. You are being discharged with an antifungal medication to take 5 times a day for the next 1 week for thrush of the mouth related to chronic steroid use. Please continue to abstain from cigarette smoking and use nicoderm patch as prescribed. Discharge Med Rec/Prescriptions Prescriptions: New clotrimazole 10 mg maryan 10 mg MM 5XD 7 Days Qty: 35 RF: 0 Continue ibuprofen 800 mg tablet 800 mg PO BID-TID PRN (Reason: pain) Qty: 30 RF: 0 albuterol sulfate 2.5 mg /3 mL (0.083 %) solution for nebulization 1 neb Inhalation PRN PRN (Reason: SOB) RF: 0 cyclobenzaprine 5 mg Tablet 5 mg PO BID RF: 0 clonazepam 1 mg Tablet 3 mg PO TID RF: 0 albuterol sulfate [Ventolin HFA] 90 mcg/actuation Hfa Aerosol Inhaler 2 puff INHALATION QID RF: 0 quetiapine 400 mg Tablet 400 mg PO DAILY RF: 0 Provider Discharge Instructions Diet: Diet as Tolerated Activity: Activity as tolerated Visit Report/Discharge Packet Instructions: Smoking Cessation for Older Adults: It's Not Too Late!, Clotrimazole Visit Report Forms: Stroke Signs & Symptoms Discharge Data Attending Provider: Ying Mattson Admit Date/Time: 06/12/18 04:55 Discharges patient from system. Discharge Date/Time: 06/13/18 12:15 Quality VTE Deep Vein Thrombosis/Pulmonary Embolism Present on Admission: No
== END 2018-06-13 12:15 | disposition home or self-care (01) ==
LOC: ED 02:28 → AC 14:39
PROVIDERS: Family Medicine; Admitting Provider Internal Medicine; Emergency Provider Emergency Medicine; Visit Provider Internal Medicine
DX: J45.901 Unspecified asthma with (acute) exacerbation (principal); B37.81 Candidal esophagitis; R73.9 Hyperglycemia, unspecified; E86.0 Dehydration; J96.10 Chronic respiratory failure, unspecified whether with hypoxia or hypercapnia; Z99.81 Dependence on supplemental oxygen; F41.9 Anxiety disorder, unspecified; F31.89 Other bipolar disorder; D72.829 Elevated white blood cell count, unspecified; Z79.51 Long term (current) use of inhaled steroids; Z72.0 Tobacco use
CPT/HCPCS: 36415; 71045; 80053; 82962; 83605; 84145; 85025; 87070; 87400; 87633; 87880; 94640; 94760; 94762; 96365; 96367; 96375; 99283; 99285; G0378; J1200; J1450; J1885; J1956; J2060; J2405; J2930; J7613

== ENCOUNTER 2019-05-13 22:28 | Observation (INO) | payer MEDICARE, MEDICAID, SELFPAY ==
[2018-06-12 05:35] VITALS: BMI 36.5
--- NOTE | 2019-05-13 22:32 | DI.RAD.S_ITS ---
PROCEDURE: XR CHEST 1V INDICATIONS: confusion and falling after taking lamictal TECHNIQUE: One view of the chest was acquired. COMPARISON: [facility], CR, XR CHEST 1V, 06/12/2018, 3:58. FINDINGS: Surgical changes and devices: None. Lungs and pleura: There are low lung volumes. Slightly increased opacities in the lung bases likely represent atelectasis. No focal consolidation. No pleural effusions or pneumothorax. Mediastinum: Mediastinal contours appear normal. Heart size is normal. Bones and chest wall: No suspicious bony lesions. Overlying soft tissues appear unremarkable. IMPRESSION: 1. Low lung volumes with probable mild atelectasis in the lung bases. No definite consolidation. Dictated by: Donn Diamond M.D. on 05/14/2019 at 8:27 Approved by: Donn Diamond M.D. on 05/14/2019 at 8:30
--- NOTE | 2019-05-13 22:32 | DI.CT.S_ITS ---
PROCEDURE: CT HEAD/BRAIN WO CON INDICATIONS: patient states confusion and falling after taking lamictal TECHNIQUE: Noncontrast 4.5 mm thick angled axial sections acquired from the foramen magnum to the vertex, with coronal and sagittal reformats. For radiation dose reduction, the following was used: automated exposure control, adjustment of mA and/or kV according to patient size. COMPARISON: [facility], CT, CT HEAD WITHOUT CONTRAST, 10/18/2017, 13:44. FINDINGS: Image quality: Excellent. CSF spaces: Basal cisterns are patent. No extra-axial fluid collections. Ventricles are normal in size and shape. Brain: No intracranial hemorrhage, mass, or mass effect. Alvarez-white matter interface is preserved. Skull and face: Calvarium and visualized facial bones are intact, without suspicious lesions. Sinuses: Visualized sinuses and mastoids are clear. IMPRESSION: 1. No acute intracranial abnormality. Concordant with preliminary interpretation. Dictated by: Donn Diamond M.D. on 05/14/2019 at 7:29 Approved by: Donn Diamond M.D. on 05/14/2019 at 7:31
--- NOTE | 2019-05-13 22:33 | ED_ITS ---
HPI - Altered Mental Status <Edna Fulton DO - Last Filed: 05/14/19 07:48> General Chief Complaint: Altered Mental Status Stated Complaint: Confusion Time Seen by Provider: 05/13/19 22:31 Source: patient and EMS Mode of arrival: EMS History of Present Illness HPI narrative: Patient describes confusion, falling down a lot and difficulty articulating herself. Patient states that she was recently started on Lamictal on the . She initially is not sure but when asked more specifically she states for mood. She states she has a history of bipolar disorder. She denies any other ingestions. She denies taking additional doses of Lamictal. Patient states she was recently at [facility] and had some infections. She states the Lamictal was prescribed by her psychiatrist. She doesn't remember his name. She states she is having trouble with the year and the month but she can't tell me where she is she can tell me she is at [facility]. Some of her recent and past medical history. She describes pain all over from falling down. Patient states she fell multiple times at home and ran into various objects at home. She states she was very mean to her family members. She denies any vomiting she denies any issues with bowel movements or urination. She denies any shortness of breath. She denies any fevers. Patient also denies any suicidal or homicidal ideation or intention. Related Data Home Medications Medication Instructions Recorded Confirmed albuterol sulfate [Ventolin HFA] 2 puff INHALATION QID 04/09/18 06/12/18 clonazepam 3 mg PO TID 04/09/18 06/12/18 quetiapine 400 mg PO DAILY 04/09/18 06/12/18 albuterol sulfate 1 neb INHALATION PRN PRN 06/12/18 06/12/18 cyclobenzaprine 5 mg PO BID 06/12/18 06/12/18 Previous Rx's Medication Instructions Recorded ibuprofen 800 mg PO BID-TID PRN #30 tab 06/08/18 Allergies Allergy/AdvReac Type Severity Reaction Status Date / Time levofloxacin Allergy Severe Hives Verified 06/12/18 03:10 Penicillins Allergy Verified 06/12/18 01:14 tramadol Allergy Verified 06/12/18 01:14 Review of Systems <Edna Fulton DO - Last Filed: 05/14/19 07:48> Review of Systems ROS Unobtainable: All systems reviewed & are unremarkable except as noted in HPI and below Patient History <Edna Fulton DO - Last Filed: 05/14/19 07:48> Medical History Asthma (Acute) Bipolar 1 disorder (Acute) Molar (Resolved) Surgical History S/P ureteral stent placement (Acute) Social History household members: none Smoking Status: Current some day smoker alcohol intake: former Smoking Status: Current some day smoker alcohol intake frequency: 0-2 drinks per day Substance Use Type: does not use Exam <Edna Fulton DO - Last Filed: 05/14/19 07:48> Narrative Exam Narrative: GEN: Obese female, alert and oriented to self, location but not year, patient appears to be in moderate distress. Patient is tearful and asking the EMS providers if there are handcuffs here. HEENT: Atraumatic, pupils are equal round reactive to light, extraocular movements are intact, nares are clear, TMs are clear with no fluid, there is no conjunctival pallor. Throat is clear without any exudates, erythema, tonsillar enlargement or uvular deviation HEART: Regular rate and rhythm without murmur, clicks, rubs. Pulses are equal in upper and lower extremities LUNGS:Lungs clear to auscultation, no wheezes, rales, crackles, chest moves symmetrically ABD:bowel sounds normal, soft, non-tender, no guarding, rebound, rigidity, no masses noted, no hepatosplenomegaly :No CVA tenderness MSCL: Non-tender, no muscle atrophy, muscles strength 5/5 upper and lower extremities, full range of motion, gait not tested. NEURO:CN 2-12 intact, sensation normal, reflexes 2/4 upper and lower extremities SKIN: No rashes. No erythema or other skin changes. Initial Vital Signs Initial Vital Signs: Vital Signs Temperature 98.9 F 05/13/19 22:39 Pulse Rate 108 H 05/13/19 22:39 Respiratory Rate 18 05/13/19 22:39 Blood Pressure 91/40 L 05/13/19 22:39 Pulse Oximetry 95 05/13/19 22:39 <Flash Diaz DO - Last Filed: 05/14/19 13:47> Initial Vital Signs Initial Vital Signs: Vital Signs Temperature 98.9 F 05/13/19 22:39 Pulse Rate 108 H 05/13/19 22:39 Respiratory Rate 18 05/13/19 22:39 Blood Pressure 91/40 L 05/13/19 22:39 Pulse Oximetry 95 05/13/19 22:39 <Adelaida Gutierrez MD - Last Filed: 05/14/19 17:48> Initial Vital Signs Initial Vital Signs: Vital Signs Temperature 98.9 F 05/13/19 22:39 Pulse Rate 108 H 05/13/19 22:39 Respiratory Rate 18 05/13/19 22:39 Blood Pressure 91/40 L 05/13/19 22:39 Pulse Oximetry 95 05/13/19 22:39 Course <Edna Fulton DO - Last Filed: 05/14/19 07:48> Orders Ordered: Discontinued Medications Albuterol (Ventolin) 2.5 mg INH NOW ONE Stop: 05/14/19 03:02 Last Admin: 05/14/19 03:05 Dose: 2.5 mg Documented by: KAMRAN Albuterol (Ventolin) 2.5 mg INH NOW ONE Stop: 05/14/19 14:48 Last Admin: 05/14/19 14:48 Dose: 2.5 mg Documented by: CLARE Albuterol/Ipratropium (Duoneb) 3 ml INH NOW ONE Stop: 05/14/19 00:17 Last Admin: 05/14/19 00:23 Dose: 3 ml Documented by: KAMRAN Sodium Chloride (Normal Saline 0.9%) 1,000 mls @ 1,000 mls/hr IV BOLUS ONE Stop: 05/13/19 23:31 Last Infusion: 05/14/19 04:15 Dose: 0 mls/hr Documented by: Admin: 05/13/19 23:49 Dose: 1,000 mls/hr Documented by: MARY Lorazepam (Ativan) 0.5 mg IV NOW ONE Stop: 05/14/19 03:01 Last Admin: 05/14/19 03:25 Dose: 0.5 mg Documented by: MARY Lorazepam (Ativan) 2 mg PO NOW ONE Stop: 05/14/19 16:48 Last Admin: 05/14/19 16:53 Dose: 2 mg Documented by: JOSSY Olanzapine (Zyprexa Zydis) 20 mg PO NOW ONE Stop: 05/14/19 05:20 Last Admin: 05/14/19 05:26 Dose: 20 mg Documented by: MARY Vital Signs Vital signs: Vital Signs - 8 hr 05/14/19 14:48 05/14/19 15:18 Pulse Rate 98 H 111 H Respiratory Rate 18 16 Blood Pressure [Right Arm] 99/56 L Pulse Oximetry 98 94 <Flash Diaz, DO - Last Filed: 05/14/19 13:47> Course Course Narrative: Patient received in sign-out from Dr. Fulton. Patient had been at her baseline mental health picture upon her discharge from [facility] on 05/03. Since then the patient has apparently not been taking her medications appropriately and has been escalating, she is clearly nondecisional and gravely disabled. She is refusing help, demanding to leave. We have notified [employer] and will pursue ZAC. 1251. Orders Ordered: Discontinued Medications Albuterol (Ventolin) 2.5 mg INH NOW ONE Stop: 05/14/19 03:02 Last Admin: 05/14/19 03:05 Dose: 2.5 mg Documented by: KAMRAN Albuterol (Ventolin) 2.5 mg INH NOW ONE Stop: 05/14/19 14:48 Last Admin: 05/14/19 14:48 Dose: 2.5 mg Documented by: CLARE Albuterol/Ipratropium (Duoneb) 3 ml INH NOW ONE Stop: 05/14/19 00:17 Last Admin: 05/14/19 00:23 Dose: 3 ml Documented by: KAMRAN Sodium Chloride (Normal Saline 0.9%) 1,000 mls @ 1,000 mls/hr IV BOLUS ONE Stop: 05/13/19 23:31 Last Infusion: 05/14/19 04:15 Dose: 0 mls/hr Documented by: Admin: 05/13/19 23:49 Dose: 1,000 mls/hr Documented by: MARY Lorazepam (Ativan) 0.5 mg IV NOW ONE Stop: 05/14/19 03:01 Last Admin: 05/14/19 03:25 Dose: 0.5 mg Documented by: MARY Lorazepam (Ativan) 2 mg PO NOW ONE Stop: 05/14/19 16:48 Last Admin: 05/14/19 16:53 Dose: 2 mg Documented by: JOSSY Olanzapine (Zyprexa Zydis) 20 mg PO NOW ONE Stop: 05/14/19 05:20 Last Admin: 05/14/19 05:26 Dose: 20 mg Documented by: MARY Vital Signs Vital signs: Vital Signs - 8 hr 05/14/19 14:48 05/14/19 15:18 Pulse Rate 98 H 111 H Respiratory Rate 18 16 Blood Pressure [Right Arm] 99/56 L Pulse Oximetry 98 94 <Adelaida Gutierrez MD - Last Filed: 05/14/19 17:48> Orders Ordered: Discontinued Medications Albuterol (Ventolin) 2.5 mg INH NOW ONE Stop: 05/14/19 03:02 Last Admin: 05/14/19 03:05 Dose: 2.5 mg Documented by: KAMRAN Albuterol (Ventolin) 2.5 mg INH NOW ONE Stop: 05/14/19 14:48 Last Admin: 05/14/19 14:48 Dose: 2.5 mg Documented by: CLARE Albuterol/Ipratropium (Duoneb) 3 ml INH NOW ONE Stop: 05/14/19 00:17 Last Admin: 05/14/19 00:23 Dose: 3 ml Documented by: KAMRAN Sodium Chloride (Normal Saline 0.9%) 1,000 mls @ 1,000 mls/hr IV BOLUS ONE Stop: 05/13/19 23:31 Last Infusion: 05/14/19 04:15 Dose: 0 mls/hr Documented by: Admin: 05/13/19 23:49 Dose: 1,000 mls/hr Documented by: MARY Lorazepam (Ativan) 0.5 mg IV NOW ONE Stop: 05/14/19 03:01 Last Admin: 05/14/19 03:25 Dose: 0.5 mg Documented by: MARY Lorazepam (Ativan) 2 mg PO NOW ONE Stop: 05/14/19 16:48 Last Admin: 05/14/19 16:53 Dose: 2 mg Documented by: JOSSY Olanzapine (Zyprexa Zydis) 20 mg PO NOW ONE Stop: 05/14/19 05:20 Last Admin: 05/14/19 05:26 Dose: 20 mg Documented by: MARY Reevaluation(s) Reevaluation #1: Patient accepted in sign-out from Dr. Diaz. Medically cleared, seen by clinical social work aide, PCR is been called with the expectation of being detained. DCR has arrived and is currently evaluating patient Time: 15:16 Reevaluation #2: Reviewed care with the DCR. He believes that the patient does need to be in the hospital. Because she is also on oxygen at this time she will need a psychiatric facility with medical consultation immediately available. Local facilities at [facility] include [facility] and [facility]. Neither of these facilities have bed availability. At this time, after her clonazepam and with verbal tactics for escalation she is actually doing better in terms of being calm and cooperative. Still demonstrating significant psychosis. We have entertain the option of admitting her to our medicine service recognizing that she would not be detained. If she attempts to leave the DCR would need to be called for a 2nd re-evaluation and another attempt at [facility] psychiatric facilities with medical care immediately available. They are hoping that beds will be available at 1 of these facilities tomorrow. Will contact our admitting hospitalist to review care Time: 16:04 Vital Signs Vital signs: Vital Signs - 8 hr 05/14/19 14:48 05/14/19 15:18 Pulse Rate 98 H 111 H Respiratory Rate 18 16 Blood Pressure [Right Arm] 99/56 L Pulse Oximetry 98 94 MDM - Altered Mental Status <Edna Fulton DO - Last Filed: 05/14/19 07:48> Lab Data Result diagrams: 05/13/19 23:30 05/13/19 23:30 Labs: Lab Results 05/13/19 05/13/19 05/13/19 Range/Units 22:30 23:30 23:30 WBC 8.7 (4.5-11.0) X10^3/uL RBC 4.25 (4.0-5.2) X10^6/uL Hgb 13.1 (12.0-16.0) g/dL Hct 38.0 (36-46) % MCV 89.5 (80-100) fL MCH 30.7 (26-34) PG MCHC 34.3 (30-36) % RDW 14.5 (11.6-14.8) % Plt Count 230 (150-400) X10^3/uL Neut % (Auto) 50.3 (50-75) % Lymph % (Auto) 38.7 (25-40) % [place] % (Auto) 7.2 (3-14) % Eos % (Auto) 2.6 (2-4) % Baso % (Auto) 1.2 (0-2) % Neut # (Auto) 4400 (1785-2199) /uL Lymph # (Auto) 3400 (3216-6209) /uL [place] # (Auto) 600 (0-900) /uL Eos # (Auto) 200 (0-450) /uL Baso # (Auto) 100 (0-100) /uL PT 13.2 H (10.1-12.7) SECONDS INR 1.1 (0.9-1.3) APTT 35 (26.4-36.2) SECONDS Sodium (137-145) mmol/L Potassium (3.4-5.1) mmol/L Chloride (98-107) mmol/L Carbon Dioxide (22-32) mmol/L BUN (7-17) mg/dL Creatinine (0.52-1.04) mg/dL Estimated GFR (>60) mL/min BUN/Creatinine Ratio (6-22) Glucose (70-100) mg/dL Lactate (0.7-2.1) mmol/L Calcium (8.4-10.2) mg/dL Total Bilirubin (0.2-1.3) mg/dL AST (14-36) IU/L ALT (<35) IU/L Alkaline Phosphatase (38-126) U/L Total Protein (6.3-8.2) g/dL Albumin (3.5-5.0) g/dL Globulin (1.7-4.1) g/dL Albumin/Globulin Ratio (1.0-2.8) Lipase 36 (23-300) U/L TSH (0.47-4.68) uIU/mL Urine RBC (0-5/HPF) Urine WBC (0-5/HPF) Ur Squamous Epith Cells (0-5/HPF) Urine Bacteria (None) Urine Mucus (Negative) Ur Culture Indicated? Salicylates (<20) mg/dL U Morph 300 ng/mL cutoff (Negative) Ur Oxycodone Screen (Negative) Urine Methadone Screen (Negative) Acetaminophen (10-30) ug/mL Ur Barbiturates Screen (Negative) U Tricyclic Antidepress (Negative) Ur Phencyclidine Scrn (Negative) Ur Amphetamines Screen (Negative) U Methamphetamines Scrn (Negative) Ur MDMA Scrn (Ecstasy) (Negative) U Benzodiazepines Scrn (Negative) Urine Cocaine Screen (Negative) U Marijuana (THC) Screen (Negative) Ethyl Alcohol ( - 10) mg/dL 05/13/19 05/13/19 05/13/19 Range/Units 23:30 23:30 23:30 WBC (4.5-11.0) X10^3/uL RBC (4.0-5.2) X10^6/uL Hgb (12.0-16.0) g/dL Hct (36-46) % MCV (80-100) fL MCH (26-34) PG MCHC (30-36) % RDW (11.6-14.8) % Plt Count (150-400) X10^3/uL Neut % (Auto) (50-75) % Lymph % (Auto) (25-40) % [place] % (Auto) (3-14) % Eos % (Auto) (2-4) % Baso % (Auto) (0-2) % Neut # (Auto) (0508-9223) /uL Lymph # (Auto) (5034-0037) /uL [place] # (Auto) (0-900) /uL Eos # (Auto) (0-450) /uL Baso # (Auto) (0-100) /uL PT (10.1-12.7) SECONDS INR (0.9-1.3) APTT (26.4-36.2) SECONDS Sodium 140 (137-145) mmol/L Potassium 3.6 (3.4-5.1) mmol/L Chloride 107 (98-107) mmol/L Carbon Dioxide 27 (22-32) mmol/L BUN 8 (7-17) mg/dL Creatinine 0.70 (0.52-1.04) mg/dL Estimated GFR > 60.0 (>60) mL/min BUN/Creatinine Ratio 11.4 (6-22) Glucose 93 (70-100) mg/dL Lactate 1.1 (0.7-2.1) mmol/L Calcium 9.2 (8.4-10.2) mg/dL Total Bilirubin 0.6 (0.2-1.3) mg/dL AST 52 H (14-36) IU/L ALT 51 H (<35) IU/L Alkaline Phosphatase 139 H (38-126) U/L Total Protein 6.9 (6.3-8.2) g/dL Albumin 3.6 (3.5-5.0) g/dL Globulin 3.3 (1.7-4.1) g/dL Albumin/Globulin Ratio 1.1 (1.0-2.8) Lipase (23-300) U/L TSH 2.98 (0.47-4.68) uIU/mL Urine RBC (0-5/HPF) Urine WBC (0-5/HPF) Ur Squamous Epith Cells (0-5/HPF) Urine Bacteria (None) Urine Mucus (Negative) Ur Culture Indicated? Salicylates < 1.0 (<20) mg/dL U Morph 300 ng/mL cutoff (Negative) Ur Oxycodone Screen (Negative) Urine Methadone Screen (Negative) Acetaminophen < 10 L (10-30) ug/mL Ur Barbiturates Screen (Negative) U Tricyclic Antidepress (Negative) Ur Phencyclidine Scrn (Negative) Ur Amphetamines Screen (Negative) U Methamphetamines Scrn (Negative) Ur MDMA Scrn (Ecstasy) (Negative) U Benzodiazepines Scrn (Negative) Urine Cocaine Screen (Negative) U Marijuana (THC) Screen (Negative) Ethyl Alcohol < 10 ( - 10) mg/dL 05/14/19 05/14/19 Range/Units 00:05 00:05 WBC (4.5-11.0) X10^3/uL RBC (4.0-5.2) X10^6/uL Hgb (12.0-16.0) g/dL Hct (36-46) % MCV (80-100) fL MCH (26-34) PG MCHC (30-36) % RDW (11.6-14.8) % Plt Count (150-400) X10^3/uL Neut % (Auto) (50-75) % Lymph % (Auto) (25-40) % [place] % (Auto) (3-14) % Eos % (Auto) (2-4) % Baso % (Auto) (0-2) % Neut # (Auto) (2712-1873) /uL Lymph # (Auto) (8764-2240) /uL [place] # (Auto) (0-900) /uL Eos # (Auto) (0-450) /uL Baso # (Auto) (0-100) /uL PT (10.1-12.7) SECONDS INR (0.9-1.3) APTT (26.4-36.2) SECONDS Sodium (137-145) mmol/L Potassium (3.4-5.1) mmol/L Chloride (98-107) mmol/L Carbon Dioxide (22-32) mmol/L BUN (7-17) mg/dL Creatinine (0.52-1.04) mg/dL Estimated GFR (>60) mL/min BUN/Creatinine Ratio (6-22) Glucose (70-100) mg/dL Lactate (0.7-2.1) mmol/L Calcium (8.4-10.2) mg/dL Total Bilirubin (0.2-1.3) mg/dL AST (14-36) IU/L ALT (<35) IU/L Alkaline Phosphatase (38-126) U/L Total Protein (6.3-8.2) g/dL Albumin (3.5-5.0) g/dL Globulin (1.7-4.1) g/dL Albumin/Globulin Ratio (1.0-2.8) Lipase (23-300) U/L TSH (0.47-4.68) uIU/mL Urine RBC 10-30/hpf H (0-5/HPF) Urine WBC None seen (0-5/HPF) Ur Squamous Epith Cells 10-30 /hpf H (0-5/HPF) Urine Bacteria Moderate (10-30) H (None) Urine Mucus 1+ H (Negative) Ur Culture Indicated? Cult not indicated Salicylates (<20) mg/dL U Morph 300 ng/mL cutoff Negative (Negative) Ur Oxycodone Screen Negative (Negative) Urine Methadone Screen Negative (Negative) Acetaminophen (10-30) ug/mL Ur Barbiturates Screen Negative (Negative) U Tricyclic Antidepress Positive H (Negative) Ur Phencyclidine Scrn Negative (Negative) Ur Amphetamines Screen Negative (Negative) U Methamphetamines Scrn Negative (Negative) Ur MDMA Scrn (Ecstasy) Negative (Negative) U Benzodiazepines Scrn Positive H (Negative) Urine Cocaine Screen Negative (Negative) U Marijuana (THC) Screen Positive H (Negative) Ethyl Alcohol ( - 10) mg/dL Point of Care Testing Test Results Negative Urine Dip Bedside Urine Glucose Negative Bedside Urine Bilirubin - Negative Bedside Urine Ketone - Negative Urine Specific [place] 1.025 Bedside Urine Occult Blood ++ Bedside Urine pH 6.0 Bedside Urine Protein +/- 15 Bedside Urine Urobilinogen - Negative Bedside Urine Nitrite - Negative Bedside Urine Leukocytes - Negative Esterase ECG Data Attestation: I personally reviewed and interpreted this ECG as follows: Prior ECG tracings: available for review Interpretation: Sinus tachycardia rate of 108 P are 152 QRS 100 and QTC of 401. No ST elevation or depression. Patient has prior EKG that appears similar. [facility] Narrative Medical decision making narrative: Patient did state that she had one of her mothers edible brownies this evening and did not realize what was in them. Patient's lab work CBC does not show acute finding, PT is 13.2, INR PTT are normal, patient's labs show slightly elevated LFTs, TSH is normal. Urine does not show any signs of infection. is negative. Toxicology shows negative alcohol, Tylenol and salicylates are negative. Lamotrigine level is pending with positive for tricyclics, benzodiazepines and marijuana. I was also able to review patient's discharge note from 05/03/2019 which she notes patient was seen hospitalized for acute on chronic respiratory failure with asthma exa cerbation and sepsis secondary to community-acquired pneumonia. Patient became increasingly delirious during her stay and it was found that she had stopped her psychiatric medications and likely in conjunction with her infection and hospitalization she was having delusions and hallucinating during her stay. States that she had weaned herself off her Seroquel and was vaping marijuana in its place. The final 2 days she was started on her old Seroquel dose which did include improve her orientation made her not delusional and able to ambulate without ataxia. I suspect today's symptoms are related more to patient's psychiatric history and possibly to an elevated Lamictal level and co-ingestion of marijuana. Lamictal level is a send out and will not be back this evening. Patient signed out to Dr. Diaz while awaiting social work. Patient has ambulated safely in the department. <Flash Diaz, DO - Last Filed: 05/14/19 13:47> Lab Data Labs: Lab Results 05/13/19 05/13/19 05/13/19 Range/Units 22:30 23:30 23:30 WBC 8.7 (4.5-11.0) X10^3/uL RBC 4.25 (4.0-5.2) X10^6/uL Hgb 13.1 (12.0-16.0) g/dL Hct 38.0 (36-46) % MCV 89.5 (80-100) fL MCH 30.7 (26-34) PG MCHC 34.3 (30-36) % RDW 14.5 (11.6-14.8) % Plt Count 230 (150-400) X10^3/uL Neut % (Auto) 50.3 (50-75) % Lymph % (Auto) 38.7 (25-40) % [place] % (Auto) 7.2 (3-14) % Eos % (Auto) 2.6 (2-4) % Baso % (Auto) 1.2 (0-2) % Neut # (Auto) 4400 (3631-3978) /uL Lymph # (Auto) 3400 (2419-5990) /uL [place] # (Auto) 600 (0-900) /uL Eos # (Auto) 200 (0-450) /uL Baso # (Auto) 100 (0-100) /uL PT 13.2 H (10.1-12.7) SECONDS INR 1.1 (0.9-1.3) APTT 35 (26.4-36.2) SECONDS Sodium (137-145) mmol/L Potassium (3.4-5.1) mmol/L Chloride (98-107) mmol/L Carbon Dioxide (22-32) mmol/L BUN (7-17) mg/dL Creatinine (0.52-1.04) mg/dL Estimated GFR (>60) mL/min BUN/Creatinine Ratio (6-22) Glucose (70-100) mg/dL Lactate (0.7-2.1) mmol/L Calcium (8.4-10.2) mg/dL Total Bilirubin (0.2-1.3) mg/dL AST (14-36) IU/L ALT (<35) IU/L Alkaline Phosphatase (38-126) U/L Total Protein (6.3-8.2) g/dL Albumin (3.5-5.0) g/dL Globulin (1.7-4.1) g/dL Albumin/Globulin Ratio (1.0-2.8) Lipase 36 (23-300) U/L TSH (0.47-4.68) uIU/mL Urine RBC (0-5/HPF) Urine WBC (0-5/HPF) Ur Squamous Epith Cells (0-5/HPF) Urine Bacteria (None) Urine Mucus (Negative) Ur Culture Indicated? Salicylates (<20) mg/dL U Morph 300 ng/mL cutoff (Negative) Ur Oxycodone Screen (Negative) Urine Methadone Screen (Negative) Acetaminophen (10-30) ug/mL Ur Barbiturates Screen (Negative) U Tricyclic Antidepress (Negative) Ur Phencyclidine Scrn (Negative) Ur Amphetamines Screen (Negative) U Methamphetamines Scrn (Negative) Ur MDMA Scrn (Ecstasy) (Negative) U Benzodiazepines Scrn (Negative) Urine Cocaine Screen (Negative) U Marijuana (THC) Screen (Negative) Ethyl Alcohol ( - 10) mg/dL 05/13/19 05/13/19 05/13/19 Range/Units 23:30 23:30 23:30 WBC (4.5-11.0) X10^3/uL RBC (4.0-5.2) X10^6/uL Hgb (12.0-16.0) g/dL Hct (36-46) % MCV (80-100) fL MCH (26-34) PG MCHC (30-36) % RDW (11.6-14.8) % Plt Count (150-400) X10^3/uL Neut % (Auto) (50-75) % Lymph % (Auto) (25-40) % [place] % (Auto) (3-14) % Eos % (Auto) (2-4) % Baso % (Auto) (0-2) % Neut # (Auto) (9928-4538) /uL Lymph # (Auto) (3817-1049) /uL [place] # (Auto) (0-900) /uL Eos # (Auto) (0-450) /uL Baso # (Auto) (0-100) /uL PT (10.1-12.7) SECONDS INR (0.9-1.3) APTT (26.4-36.2) SECONDS Sodium 140 (137-145) mmol/L Potassium 3.6 (3.4-5.1) mmol/L Chloride 107 (98-107) mmol/L Carbon Dioxide 27 (22-32) mmol/L BUN 8 (7-17) mg/dL Creatinine 0.70 (0.52-1.04) mg/dL Estimated GFR > 60.0 (>60) mL/min BUN/Creatinine Ratio 11.4 (6-22) Glucose 93 (70-100) mg/dL Lactate 1.1 (0.7-2.1) mmol/L Calcium 9.2 (8.4-10.2) mg/dL Total Bilirubin 0.6 (0.2-1.3) mg/dL AST 52 H (14-36) IU/L ALT 51 H (<35) IU/L Alkaline Phosphatase 139 H (38-126) U/L Total Protein 6.9 (6.3-8.2) g/dL Albumin 3.6 (3.5-5.0) g/dL Globulin 3.3 (1.7-4.1) g/dL Albumin/Globulin Ratio 1.1 (1.0-2.8) Lipase (23-300) U/L TSH 2.98 (0.47-4.68) uIU/mL Urine RBC (0-5/HPF) Urine WBC (0-5/HPF) Ur Squamous Epith Cells (0-5/HPF) Urine Bacteria (None) Urine Mucus (Negative) Ur Culture Indicated? Salicylates < 1.0 (<20) mg/dL U Morph 300 ng/mL cutoff (Negative) Ur Oxycodone Screen (Negative) Urine Methadone Screen (Negative) Acetaminophen < 10 L (10-30) ug/mL Ur Barbiturates Screen (Negative) U Tricyclic Antidepress (Negative) Ur Phencyclidine Scrn (Negative) Ur Amphetamines Screen (Negative) U Methamphetamines Scrn (Negative) Ur MDMA Scrn (Ecstasy) (Negative) U Benzodiazepines Scrn (Negative) Urine Cocaine Screen (Negative) U Marijuana (THC) Screen (Negative) Ethyl Alcohol < 10 ( - 10) mg/dL 05/14/19 05/14/19 Range/Units 00:05 00:05 WBC (4.5-11.0) X10^3/uL RBC (4.0-5.2) X10^6/uL Hgb (12.0-16.0) g/dL Hct (36-46) % MCV (80-100) fL MCH (26-34) PG MCHC (30-36) % RDW (11.6-14.8) % Plt Count (150-400) X10^3/uL Neut % (Auto) (50-75) % Lymph % (Auto) (25-40) % [place] % (Auto) (3-14) % Eos % (Auto) (2-4) % Baso % (Auto) (0-2) % Neut # (Auto) (6075-0249) /uL Lymph # (Auto) (5118-6063) /uL [place] # (Auto) (0-900) /uL Eos # (Auto) (0-450) /uL Baso # (Auto) (0-100) /uL PT (10.1-12.7) SECONDS INR (0.9-1.3) APTT (26.4-36.2) SECONDS Sodium (137-145) mmol/L Potassium (3.4-5.1) mmol/L Chloride (98-107) mmol/L Carbon Dioxide (22-32) mmol/L BUN (7-17) mg/dL Creatinine (0.52-1.04) mg/dL Estimated GFR (>60) mL/min BUN/Creatinine Ratio (6-22) Glucose (70-100) mg/dL Lactate (0.7-2.1) mmol/L Calcium (8.4-10.2) mg/dL Total Bilirubin (0.2-1.3) mg/dL AST (14-36) IU/L ALT (<35) IU/L Alkaline Phosphatase (38-126) U/L Total Protein (6.3-8.2) g/dL Albumin (3.5-5.0) g/dL Globulin (1.7-4.1) g/dL Albumin/Globulin Ratio (1.0-2.8) Lipase (23-300) U/L TSH (0.47-4.68) uIU/mL Urine RBC 10-30/hpf H (0-5/HPF) Urine WBC None seen (0-5/HPF) Ur Squamous Epith Cells 10-30 /hpf H (0-5/HPF) Urine Bacteria Moderate (10-30) H (None) Urine Mucus 1+ H (Negative) Ur Culture Indicated? Cult not indicated Salicylates (<20) mg/dL U Morph 300 ng/mL cutoff Negative (Negative) Ur Oxycodone Screen Negative (Negative) Urine Methadone Screen Negative (Negative) Acetaminophen (10-30) ug/mL Ur Barbiturates Screen Negative (Negative) U Tricyclic Antidepress Positive H (Negative) Ur Phencyclidine Scrn Negative (Negative) Ur Amphetamines Screen Negative (Negative) U Methamphetamines Scrn Negative (Negative) Ur MDMA Scrn (Ecstasy) Negative (Negative) U Benzodiazepines Scrn Positive H (Negative) Urine Cocaine Screen Negative (Negative) U Marijuana (THC) Screen Positive H (Negative) Ethyl Alcohol ( - 10) mg/dL Point of Care Testing Test Results Negative Urine Dip Bedside Urine Glucose Negative Bedside Urine Bilirubin - Negative Bedside Urine Ketone - Negative Urine Specific [place] 1.025 Bedside Urine Occult Blood ++ Bedside Urine pH 6.0 Bedside Urine Protein +/- 15 Bedside Urine Urobilinogen - Negative Bedside Urine Nitrite - Negative Bedside Urine Leukocytes - Negative Esterase <Adelaida Gutierrez MD - Last Filed: 05/14/19 17:48> Lab Data Labs: Lab Results 05/13/19 05/13/19 05/13/19 Range/Units 22:30 23:30 23:30 WBC 8.7 (4.5-11.0) X10^3/uL RBC 4.25 (4.0-5.2) X10^6/uL Hgb 13.1 (12.0-16.0) g/dL Hct 38.0 (36-46) % MCV 89.5 (80-100) fL MCH 30.7 (26-34) PG MCHC 34.3 (30-36) % RDW 14.5 (11.6-14.8) % Plt Count 230 (150-400) X10^3/uL Neut % (Auto) 50.3 (50-75) % Lymph % (Auto) 38.7 (25-40) % [place] % (Auto) 7.2 (3-14) % Eos % (Auto) 2.6 (2-4) % Baso % (Auto) 1.2 (0-2) % Neut # (Auto) 4400 (0794-5906) /uL Lymph # (Auto) 3400 (8196-3285) /uL [place] # (Auto) 600 (0-900) /uL Eos # (Auto) 200 (0-450) /uL Baso # (Auto) 100 (0-100) /uL PT 13.2 H (10.1-12.7) SECONDS INR 1.1 (0.9-1.3) APTT 35 (26.4-36.2) SECONDS Sodium (137-145) mmol/L Potassium (3.4-5.1) mmol/L Chloride (98-107) mmol/L Carbon Dioxide (22-32) mmol/L BUN (7-17) mg/dL Creatinine (0.52-1.04) mg/dL Estimated GFR (>60) mL/min BUN/Creatinine Ratio (6-22) Glucose (70-100) mg/dL Lactate (0.7-2.1) mmol/L Calcium (8.4-10.2) mg/dL Total Bilirubin (0.2-1.3) mg/dL AST (14-36) IU/L ALT (<35) IU/L Alkaline Phosphatase (38-126) U/L Total Protein (6.3-8.2) g/dL Albumin (3.5-5.0) g/dL Globulin (1.7-4.1) g/dL Albumin/Globulin Ratio (1.0-2.8) Lipase 36 (23-300) U/L TSH (0.47-4.68) uIU/mL Urine RBC (0-5/HPF) Urine WBC (0-5/HPF) Ur Squamous Epith Cells (0-5/HPF) Urine Bacteria (None) Urine Mucus (Negative) Ur Culture Indicated? Salicylates (<20) mg/dL U Morph 300 ng/mL cutoff (Negative) Ur Oxycodone Screen (Negative) Urine Methadone Screen (Negative) Acetaminophen (10-30) ug/mL Ur Barbiturates Screen (Negative) U Tricyclic Antidepress (Negative) Ur Phencyclidine Scrn (Negative) Ur Amphetamines Screen (Negative) U Methamphetamines Scrn (Negative) Ur MDMA Scrn (Ecstasy) (Negative) U Benzodiazepines Scrn (Negative) Urine Cocaine Screen (Negative) U Marijuana (THC) Screen (Negative) Ethyl Alcohol ( - 10) mg/dL 05/13/19 05/13/19 05/13/19 Range/Units 23:30 23:30 23:30 WBC (4.5-11.0) X10^3/uL RBC (4.0-5.2) X10^6/uL Hgb (12.0-16.0) g/dL Hct (36-46) % MCV (80-100) fL MCH (26-34) PG MCHC (30-36) % RDW (11.6-14.8) % Plt Count (150-400) X10^3/uL Neut % (Auto) (50-75) % Lymph % (Auto) (25-40) % [place] % (Auto) (3-14) % Eos % (Auto) (2-4) % Baso % (Auto) (0-2) % Neut # (Auto) (0186-8811) /uL Lymph # (Auto) (8759-3570) /uL [place] # (Auto) (0-900) /uL Eos # (Auto) (0-450) /uL Baso # (Auto) (0-100) /uL PT (10.1-12.7) SECONDS INR (0.9-1.3) APTT (26.4-36.2) SECONDS Sodium 140 (137-145) mmol/L Potassium 3.6 (3.4-5.1) mmol/L Chloride 107 (98-107) mmol/L Carbon Dioxide 27 (22-32) mmol/L BUN 8 (7-17) mg/dL Creatinine 0.70 (0.52-1.04) mg/dL Estimated GFR > 60.0 (>60) mL/min BUN/Creatinine Ratio 11.4 (6-22) Glucose 93 (70-100) mg/dL Lactate 1.1 (0.7-2.1) mmol/L Calcium 9.2 (8.4-10.2) mg/dL Total Bilirubin 0.6 (0.2-1.3) mg/dL AST 52 H (14-36) IU/L ALT 51 H (<35) IU/L Alkaline Phosphatase 139 H (38-126) U/L Total Protein 6.9 (6.3-8.2) g/dL Albumin 3.6 (3.5-5.0) g/dL Globulin 3.3 (1.7-4.1) g/dL Albumin/Globulin Ratio 1.1 (1.0-2.8) Lipase (23-300) U/L TSH 2.98 (0.47-4.68) uIU/mL Urine RBC (0-5/HPF) Urine WBC (0-5/HPF) Ur Squamous Epith Cells (0-5/HPF) Urine Bacteria (None) Urine Mucus (Negative) Ur Culture Indicated? Salicylates < 1.0 (<20) mg/dL U Morph 300 ng/mL cutoff (Negative) Ur Oxycodone Screen (Negative) Urine Methadone Screen (Negative) Acetaminophen < 10 L (10-30) ug/mL Ur Barbiturates Screen (Negative) U Tricyclic Antidepress (Negative) Ur Phencyclidine Scrn (Negative) Ur Amphetamines Screen (Negative) U Methamphetamines Scrn (Negative) Ur MDMA Scrn (Ecstasy) (Negative) U Benzodiazepines Scrn (Negative) Urine Cocaine Screen (Negative) U Marijuana (THC) Screen (Negative) Ethyl Alcohol < 10 ( - 10) mg/dL 05/14/19 05/14/19 Range/Units 00:05 00:05 WBC (4.5-11.0) X10^3/uL RBC (4.0-5.2) X10^6/uL Hgb (12.0-16.0) g/dL Hct (36-46) % MCV (80-100) fL MCH (26-34) PG MCHC (30-36) % RDW (11.6-14.8) % Plt Count (150-400) X10^3/uL Neut % (Auto) (50-75) % Lymph % (Auto) (25-40) % [place] % (Auto) (3-14) % Eos % (Auto) (2-4) % Baso % (Auto) (0-2) % Neut # (Auto) (0972-5587) /uL Lymph # (Auto) (5443-0735) /uL [place] # (Auto) (0-900) /uL Eos # (Auto) (0-450) /uL Baso # (Auto) (0-100) /uL PT (10.1-12.7) SECONDS INR (0.9-1.3) APTT (26.4-36.2) SECONDS Sodium (137-145) mmol/L Potassium (3.4-5.1) mmol/L Chloride (98-107) mmol/L Carbon Dioxide (22-32) mmol/L BUN (7-17) mg/dL Creatinine (0.52-1.04) mg/dL Estimated GFR (>60) mL/min BUN/Creatinine Ratio (6-22) Glucose (70-100) mg/dL Lactate (0.7-2.1) mmol/L Calcium (8.4-10.2) mg/dL Total Bilirubin (0.2-1.3) mg/dL AST (14-36) IU/L ALT (<35) IU/L Alkaline Phosphatase (38-126) U/L Total Protein (6.3-8.2) g/dL Albumin (3.5-5.0) g/dL Globulin (1.7-4.1) g/dL Albumin/Globulin Ratio (1.0-2.8) Lipase (23-300) U/L TSH (0.47-4.68) uIU/mL Urine RBC 10-30/hpf H (0-5/HPF) Urine WBC None seen (0-5/HPF) Ur Squamous Epith Cells 10-30 /hpf H (0-5/HPF) Urine Bacteria Moderate (10-30) H (None) Urine Mucus 1+ H (Negative) Ur Culture Indicated? Cult not indicated Salicylates (<20) mg/dL U Morph 300 ng/mL cutoff Negative (Negative) Ur Oxycodone Screen Negative (Negative) Urine Methadone Screen Negative (Negative) Acetaminophen (10-30) ug/mL Ur Barbiturates Screen Negative (Negative) U Tricyclic Antidepress Positive H (Negative) Ur Phencyclidine Scrn Negative (Negative) Ur Amphetamines Screen Negative (Negative) U Methamphetamines Scrn Negative (Negative) Ur MDMA Scrn (Ecstasy) Negative (Negative) U Benzodiazepines Scrn Positive H (Negative) Urine Cocaine Screen Negative (Negative) U Marijuana (THC) Screen Positive H (Negative) Ethyl Alcohol ( - 10) mg/dL Point of Care Testing Test Results Negative Urine Dip Bedside Urine Glucose Negative Bedside Urine Bilirubin - Negative Bedside Urine Ketone - Negative Urine Specific [place] 1.025 Bedside Urine Occult Blood ++ Bedside Urine pH 6.0 Bedside Urine Protein +/- 15 Bedside Urine Urobilinogen - Negative Bedside Urine Nitrite - Negative Bedside Urine Leukocytes - Negative Esterase MDM Narrative Medical decision making narrative: Patient is re-evaluated and her father is now in the room. It turns out that she was admitted to [facility] approximately 18 months ago with a prolonged ICU and intubated pneumonia. After this she was discharged home on oxygen and it is not entirely clear that that was ever re-evaluated to be completely discontinued. She clearly gets anxious and is psychiatrically comforted by the oxygen. She was admitted to [facility] earlier this month with a recurrence pneumonia. On discharge from there her room air sats were at 98% but her 2 L of oxygen were apparently continued. In the emergency department she has not had oxygen in place and has been doing quite well. At rest sats were in the upper 90s and with activity and walking around the department the lowest we can measure is 90%. It is not entirely clear to me that she actually meets all criteria for home oxygen at this point. Will keep her off of oxygen over the course of the evening with oximetry monitoring to better evaluate Due to her medical complexity she will need a psychiatric facility with immediate medical consultation if needed. Neither [facility] or [facility] in [place] have beds available at this time. She has not been detained by the [facility]. She is calm after oral clonazepam and oral Ativan. As she is speaking fluently however the thought content is clearly tangential, jumbled and at times completely inappropriate and wrong. Once we have sorted out the oxygen needs, she will need a psychiatric admission. I have spoken with Dr. Rhodes, hospitalist, who will admit the patient overnight. If the patient becomes agitated and is not responding to medications she will need to be physically restrained and the DCR will need to be contacted again as she is not to be discharged in or care for herself. She was current not requiring seclusion or restraint. A sitter had and verbal redirecting along with the oral benzodiazepines has been effective at this time. Discharge Plan Departure Patient Disposition: Admitted As Inpatient Clinical Impression: Delusions, Paranoia
[2019-05-13 22:39] VITALS: BP 91/40; PULSE 108; RESP 18; TEMP 37.2; O2SAT 95; BMI 35.4
[2019-05-13 23:46] LABS: Add Manual Diff / Slide Review NO; Basophils Absolute Auto 100 /uL (0-100); Basophils Percent Auto 1.2 % (0-2); Eosinophils Absolute Auto 200 /uL (0-450); Eosinophils Percent Auto 2.6 % (2-4); Hemoglobin 13.1 g/dL (12.0-16.0); Lymphocytes Absolute Auto 3400 /uL (1100-4500); Lymphocytes Percent Auto 38.7 % (25-40); Mean Corpuscular HGB Conc 34.3 % (30-36); Mean Corpuscular Hemoglobin 30.7 PG (26-34); Mean Corpuscular Volume 89.5 fL (80-100); Monocytes Absolute Auto 600 /uL (0-900); Monocytes Percent Auto 7.2 % (3-14); Neutrophils Absolute Auto 4400 /uL (1500-7000); Neutrophils Percent Auto 50.3 % (50-75); Platelet Count 230 X10^3/uL (150-400); Red Blood Cell Count 4.25 X10^6/uL (4.0-5.2); Red Cell Distribution Width 14.5 % (11.6-14.8); White Blood Cell Count 8.7 X10^3/uL (4.5-11.0)
[2019-05-13] MEDS: SODIUM CHLORIDE 0.9% 1,000 ML 1000 ML IV (23:49)
[2019-05-13 23:54] LABS: INR 1.1 (0.9-1.3); Prothrombin Time 13.2 SECONDS (10.1-12.7)
[2019-05-13 23:56] LABS: Lactate (Lactic Acid) 1.1 mmol/L (0.7-2.1)
[2019-05-13 23:57] LABS: Alanine Aminotransferase 51 IU/L (<35); Albumin 3.6 g/dL (3.5-5.0); Albumin Globulin Ratio 1.1 (1.0-2.8); Alkaline Phosphatase 139 U/L (38-126); Aspartate Aminotransferase 52 IU/L (14-36); BUN Creatinine Ratio 11.4 (6-22); Bilirubin Total 0.6 mg/dL (0.2-1.3); Blood Urea Nitrogen 8 mg/dL (7-17); Calcium 9.2 mg/dL (8.4-10.2); Carbon Dioxide 27 mmol/L (22-32); Chloride 107 mmol/L (98-107); Estimated Glomerular Filt Rate > 60.0 mL/min (>60); Globulin 3.3 g/dL (1.7-4.1); Glucose 93 mg/dL (70-100); HEMOLYSIS 23 (0-50); PTT Partial Thromboplastin Tim 35 SECONDS (26.4-36.2); Potassium 3.6 mmol/L (3.4-5.1); Sodium 140 mmol/L (137-145); Total Protein 6.9 g/dL (6.3-8.2)
[2019-05-14] VITALS (11 sets, daily range): BP systolic 90–135; BP diastolic 56–80; PULSE 88–115; RESP 16–20; TEMP 36.7; O2SAT 92–98; BMI 35.4
[2019-05-14 00:08] LABS: Acetaminophen < 10 ug/mL (10-30); Ethanol (ETOH) < 10 mg/dL; Salicylate < 1.0 mg/dL (<20)
--- NOTE | 2019-05-14 00:17 | PC.NURSE ---
patient coughing and asking for a neb. states she does nebs at home and has missed her last one for today. provider notified and ordered neb
[2019-05-14 00:21] LABS: WBC Urine None Seen (0-5/HPF)
[2019-05-14] MEDS: ALBUTEROL/IPRATROPIUM 3 ML AMPUL INH (00:23)
[2019-05-14 00:27] LABS: UR Morphine/Opiate cutoff 300 Negative (Negative); Ur Creatinine Normal (Normal); Ur Specific Gravity Normal (Normal); Urine Amphetamines Negative (Negative); Urine Barbiturates Negative (Negative); Urine Benzodiazepines Positive (Negative); Urine Cocaine Negative (Negative); Urine MDMA Negative (Negative); Urine Methamphetamines Negative (Negative); Urine Phencyclidine Negative (Negative); Urine Tetrahydrocannabinol Positive (Negative); Urine pH M (Normal)
[2019-05-14 00:28] LABS: Thyroid Stimulating Hormone 2.98 uIU/mL (0.47-4.68)
[2019-05-14 00:28] LABS: Urine Methadone Negative (Negative); Urine Oxycodone Negative (Negative); Urine Tricyclic Antidepressant Positive (Negative)
[2019-05-14 00:40] LABS: Bacteria Urine Moderate (10-30); Mucus Urine 1+ (Negative); RBC Urine 10-30/HPF (0-5/HPF); Squamous Epithelial Cell Urine 10-30 /HPF (0-5/HPF)
[2019-05-14 00:41] LABS: Culture Indicated Urine Cult Not Indicated
[2019-05-14 01:11] LABS: Lipase 36 U/L (23-300)
[2019-05-14] MEDS: ALBUTEROL 2.5 MG/3 ML NEB (ADULT) INH ×3 (03:05→19:48)
[2019-05-14] MEDS: LORazepam 2 MG/ML INJ 0.5 MG IV (03:25)
--- NOTE | 2019-05-14 03:47 | PC.NURSE ---
Late entry-Patient appears to have nightmares while sleeping. Patient calling out and yelling at her dad in her sleep. Patient awoke and confused her dreams from reality and thought her dad was here. Patient required provider at bedside to deesculate. Provider ordered ativan.
--- NOTE | 2019-05-14 04:20 | PC.NURSE ---
patient is requesting discharge, provider aware, phone numbers for mother gives no answer, patient provided several phone numbers for father that have not worked.
--- NOTE | 2019-05-14 05:14 | PC.NURSE ---
patient redirected and her bed was remade. patient placed on O2, she states she uses o2 at home. She continues to give phone numbers for her father that are not valid phone numbers. Patient is agreeable to zyprexa to help her rest. She states she wants something to help her.
--- NOTE | 2019-05-14 05:22 | PC.NURSE ---
patient is telling staff that the keys were left here and here is your phone. Pt refering to blood pressure cuff as the phone and the hooks on the IV pole are the keys
[2019-05-14] MEDS: OLANZapine ODT 10 MG TAB 20 MG PO (05:26)
--- NOTE | 2019-05-14 06:57 | PC.NURSE ---
patient ambulated to the bathroom with assistance from walker. Patient bed was re made and her room organized again after she restlessly moved all of the items around in the room . Patient again redirected and is now resting calmly on the stretcher.
--- NOTE | 2019-05-14 07:35 | PC.NURSE ---
Patient walked around department using walker with INSIDE POLISHER. Pt tolerated well. She stopped and spoke with this RN at the nurses station. Pt asking when her cousin Holly is coming to get her. Informed pt that Dr. Diaz was taking over for Dr. Fulton and that he will be in shortly to talk with her about the plan. Pt redirectable to room.
--- NOTE | 2019-05-14 07:59 | PC.NURSE ---
Brought patient breakfast tray
--- NOTE | 2019-05-14 08:00 | PC.NURSE ---
Pt ate 80% of breakfast.
--- NOTE | 2019-05-14 08:46 | PC.NURSE ---
ASSOCIATE STORE LEADER at bedside speaking w/patient.
--- NOTE | 2019-05-14 13:11 | CM.SWNOTE ---
WHOLESALE ACCOUNT MANAGER Note: This WHOLESALE ACCOUNT MANAGER requested by PM ED physician Dr Fulton and AM Dr Diaz to assess for dispo on this 38 yo, h/o Bipolar affective disorder and recent stay at [facility] for acute resp failure/distress. Gege comes in by EMS after falling multiple times at home yesterday. Attempted to meet with Gege this morning, she was groggy and was not A+O, Gege was unable to follow a goal directed conversation, she was unable to tell this WHOLESALE ACCOUNT MANAGER what medications she is on, what providers she has in the outpt setting, and how she was going to get home. Gege could not operate her own cell phone. Left room to update Dr Diaz, and later saw Gege leaving her room after an episode of being incontinent of bowel, RN/FENCE MANUFACTURE SUPERVISOR aware and attempted to redirect Gege at that time. placed a call to Gege's mom Maira P# [phone] . Maira explained Gege was DC from [facility] one week ago and has been very self destructive since that time. Gege has been extremely paranoid towards loved ones and verbally abusive. Mom Maira and Dad Hector Chino P# [phone] have been attempting to check on Gege and her dog this week but Gege has been dismissive and will not take her dog out to go potty, which is very uncharacteristic. Gege has refused to take her scheduled medication and Dad unsure whether Gege has been eating or sleeping at all this week. Yoel Young heading to the ED to discuss options for Gege moving forward Later in the morning, PCP Dr Rajput consulted by Dr Diaz, Yoel Hector present at bedside, and all agree Gege unable to safely care for herself at home. Discussion held about attempting placement efforts through Medicaid? Dad telling Dr Diaz that [facility] in home care has been attempted but pt did not meet functional criteria at that time. This WHOLESALE ACCOUNT MANAGER wonders if Gege would be appropriate for an expedited request for functional assessment once admitted here? POC changed when Gege began getting more and more agitated, exhibiting signs of active olegario w/paranoid behavior, making threats towards staff if they didn't release her from the ER and stating I'd rather be in [facility] than in this ER, Gege non-sensical and refusing most care, but responding to current efforts to keep her in ER Rm 06. Dad Hector at bedside assisting w/deescalation efforts. Now Gege considered to be in active psychosis/MH crisis and attempting to leave this ER, DCR called by this WHOLESALE ACCOUNT MANAGER, discussed Gege's grave disability and summarized information above, long chain dyeing machine operator DCR Yanira responding, ETA unknown at this time. ED staff updated. Provided Gege's Dad Hector w/ a blank affidavit requesting he complete it w/details about events leading up to this ER visit and concerns about Gege's safety if released home (?) Hector agreeable. Dad and sister now at bedside Rm 06 JOSE Hampton
--- NOTE | 2019-05-14 14:18 | PC.NURSE ---
Family by patient's bedside, patient stated she is afraid if she goes to facility they will handcuff her to the bed, assured her that wouldn't happen
--- NOTE | 2019-05-14 14:45 | PC.NURSE ---
Patient laying down on bed with family by her side
--- NOTE | 2019-05-14 15:46 | PC.NURSE ---
DCR videotape sales representative is in room performing evaluation on patient at this time
[2019-05-14] MEDS: LORazepam 0.5 MG TABLET 2 MG PO (16:53)
--- NOTE | 2019-05-14 17:07 | PC.NURSE ---
Father is Hector Lundy. Phone number [phone]. Is available for daughter 21/12. Spent time with her today and was instrumental in keeping her calm and deescalating.
--- NOTE | 2019-05-14 18:43 | P.HP_ITS ---
History of Present Illness History of Present Illness Date Patient Seen: 05/14/19 Chief complaint: Confusion Narrative: Patient is a 38-year-old female with a history of bipolar affective disorder, asthma who was brought into the emergency room for disorganized thinking. The patient had been falling at home. She had difficulty with her speech. Speech was fluent however she was nonsensical. She was initially somewhat agitated it the she received several doses of Ativan. With the be nzodiazepines the patient became calmer. She was seen by the DCS worker. It was felt that the patient was unsafe for discharge and needed to be involuntarily held. However the patient became more cooperative. Implants were underway for her to be transferred to a psych facility for an inpatient p sychiatric admission. As the patient has been intubated twice in the past, was previously on oxygen at home and was felt to be medically complicated the only psychiatric facilities willing to consider her were [facility] and [facility]. Unfortunately neither hospital at this time has a bed available. The patient will be admitted to [facility] with plans to transfer her to a psychiatric facility once a bed becomes available. At this time the patient is pleasant and cooperative. However she is unable to provide any history. She somewhat scattered in her thinking and times her explanation makes no sense. Patient History Medical History Asthma (Acute) Bipolar 1 disorder (Acute) Molar (Resolved) Surgical History S/P ureteral stent placement (Acute) Family & Social History Family History Mother No problems noted. Social History: household members none Prior Living Arrangements Apartment/Condo Safety & Behavioral: Feels Safe in Current Yes Environment Been Physically Hurt or No Threatened By a Person Suicidal Ideation Description None Suicide Plan Description No Plan Tobacco & Substance use: Tobacco type cigarettes Smoking Status Current some day smoker alcohol intake former alcohol intake frequency 0-2 drinks per day Substance Use Type does not use Meds Home Medications and Allergies Home Medications Medication Instructions Recorded Confirmed Type albuterol sulfate [Ventolin HFA] 2 puff INHALATION QID 04/09/18 06/12/18 History clonazepam 3 mg PO TID 04/09/18 06/12/18 History quetiapine 400 mg PO DAILY 04/09/18 06/12/18 History ibuprofen 800 mg PO BID-TID PRN #30 tab 06/08/18 06/12/18 Rx albuterol sulfate 1 neb INHALATION PRN PRN 06/12/18 06/12/18 History cyclobenzaprine 5 mg PO BID 06/12/18 06/12/18 History prazosin 2 mg PO BEDTIME 05/14/19 05/14/19 History Allergies Allergy/AdvReac Type Severity Reaction Status Date / Time levofloxacin Allergy Severe Hives Verified 06/12/18 03:10 Penicillins Allergy Verified 06/12/18 01:14 tramadol Allergy Verified 06/12/18 01:14 Review of Systems Review of Systems ROS Unobtainable: unobtainable due to mental status Exam Vital Signs (past 8 hours): - 05/14/19 14:48 05/14/19 15:18 05/14/19 18:00 Temperature 98.0 F Pulse Rate 98 H 111 H 115 H Respiratory Rate 18 16 20 Blood Pressure 135/75 Blood Pressure [Right Arm] 99/56 L Pulse Oximetry 98 94 93 Oxygen Delivery Method Room Air Oxygen Flow Rate 0 Narrative Exam Narrative: Anxious female lying in bed HEENT: Normocephalic atraumatic, extraocular muscles are intact, oropharynx is clear, neck is supple without adenopathy Lungs: Decreased breath is with occasional end-expiratory wheezing Cardiac exam: Regular rate and rhythm normal S1-S2 Abdomen: Soft, mildly tender in the right upper quadrant, no palpable masses, no hepatosplenomegaly noted Extremities: No edema Neuro exam: Cranial nerves 2-12 are intact, strength is symmetric and equal, sensation is grossly intact, reflexes are brisk and equal bilaterally Psychiatric exam: Patient's speech is fluent, however at times when speaking it is nonsensical. It is difficult to follow what she is saying. She will jump from present tense to 5 years ago. She has difficulty describing what has occurred and why she is in the hospital. She does not appear to have any active hallucinations, she has no tics at this time. Objective Labs Result Diagrams: 05/13/19 23:30 05/13/19 23:30 Labs: Laboratory Results - last 24 hr 05/13/19 05/13/19 05/13/19 22:30 23:30 23:30 WBC 8.7 RBC 4.25 Hgb 13.1 Hct 38.0 MCV 89.5 MCH 30.7 MCHC 34.3 RDW 14.5 Plt Count 230 Neut % (Auto) 50.3 Lymph % (Auto) 38.7 [place] % (Auto) 7.2 Eos % (Auto) 2.6 Baso % (Auto) 1.2 Neut # (Auto) 4400 Lymph # (Auto) 3400 [place] # (Auto) 600 Eos # (Auto) 200 Baso # (Auto) 100 PT 13.2 H INR 1.1 APTT 35 Sodium Potassium Chloride Carbon Dioxide BUN Creatinine Estimated GFR BUN/Creatinine Ratio Glucose Lactate Calcium Total Bilirubin AST ALT Alkaline Phosphatase Total Protein Albumin Globulin Albumin/Globulin Ratio Lipase 36 TSH Urine RBC Urine WBC Ur Squamous Epith Cells Urine Bacteria Urine Mucus Ur Culture Indicated? Salicylates U Morph 300 ng/mL cutoff Ur Oxycodone Screen Urine Methadone Screen Acetaminophen Ur Barbiturates Screen U Tricyclic Antidepress Ur Phencyclidine Scrn Ur Amphetamines Screen U Methamphetamines Scrn Ur MDMA Scrn (Ecstasy) U Benzodiazepines Scrn Urine Cocaine Screen U Marijuana (THC) Screen Ethyl Alcohol 05/13/19 05/13/19 05/13/19 23:30 23:30 23:30 WBC RBC Hgb Hct MCV MCH MCHC RDW Plt Count Neut % (Auto) Lymph % (Auto) [place] % (Auto) Eos % (Auto) Baso % (Auto) Neut # (Auto) Lymph # (Auto) [place] # (Auto) Eos # (Auto) Baso # (Auto) PT INR APTT Sodium 140 Potassium 3.6 Chloride 107 Carbon Dioxide 27 BUN 8 Creatinine 0.70 Estimated GFR > 60.0 BUN/Creatinine Ratio 11.4 Glucose 93 Lactate 1.1 Calcium 9.2 Total Bilirubin 0.6 AST 52 H ALT 51 H Alkaline Phosphatase 139 H Total Protein 6.9 Albumin 3.6 Globulin 3.3 Albumin/Globulin Ratio 1.1 Lipase TSH 2.98 Urine RBC Urine WBC Ur Squamous Epith Cells Urine Bacteria Urine Mucus Ur Culture Indicated? Salicylates < 1.0 U Morph 300 ng/mL cutoff Ur Oxycodone Screen Urine Methadone Screen Acetaminophen < 10 L Ur Barbiturates Screen U Tricyclic Antidepress Ur Phencyclidine Scrn Ur Amphetamines Screen U Methamphetamines Scrn Ur MDMA Scrn (Ecstasy) U Benzodiazepines Scrn Urine Cocaine Screen U Marijuana (THC) Screen Ethyl Alcohol < 10 05/14/19 05/14/19 00:05 00:05 WBC RBC Hgb Hct MCV MCH MCHC RDW Plt Count Neut % (Auto) Lymph % (Auto) [place] % (Auto) Eos % (Auto) Baso % (Auto) Neut # (Auto) Lymph # (Auto) [place] # (Auto) Eos # (Auto) Baso # (Auto) PT INR APTT Sodium Potassium Chloride Carbon Dioxide BUN Creatinine Estimated GFR BUN/Creatinine Ratio Glucose Lactate Calcium Total Bilirubin AST ALT Alkaline Phosphatase Total Protein Albumin Globulin Albumin/Globulin Ratio Lipase TSH Urine RBC 10-30/hpf H Urine WBC None seen Ur Squamous Epith Cells 10-30 /hpf H Urine Bacteria Moderate (10-30) H Urine Mucus 1+ H Ur Culture Indicated? Cult not indicated Salicylates U Morph 300 ng/mL cutoff Negative Ur Oxycodone Screen Negative Urine Methadone Screen Negative Acetaminophen Ur Barbiturates Screen Negative U Tricyclic Antidepress Positive H Ur Phencyclidine Scrn Negative Ur Amphetamines Screen Negative U Methamphetamines Scrn Negative Ur MDMA Scrn (Ecstasy) Negative U Benzodiazepines Scrn Positive H Urine Cocaine Screen Negative U Marijuana (THC) Screen Positive H Ethyl Alcohol Assessment & Plan Assessment & Plan narrative: 38-year-old female with decompensated bipolar disorder awaiting psychiatric bed placement. Patient is voluntarily here in the hospital however should she demanded to leave would recommend a DCS workers for involuntary stay at admission. There are no beds available at [facility] or [facility]. Hopefully they'll be site beds tomorrow for transfer. Asthma: Chronic will continue her home medications Patient will be a full code.
--- NOTE | 2019-05-14 19:06 | PC.NURSE ---
1:1 Sitter assigned per MD request. Home medications stored in night med room for pharmacy to collect.
[2019-05-14] MEDS: ACETAMINOPHEN 325 MG TABLET 650 MG PO (19:39)
--- NOTE | 2019-05-14 20:41 | PC.ADMIT ---
Addendum entered by Bell Enriquez R.N. 05/14/19 22:23: Pt now experiencing hallucinations and delusions. Oriented x3. Night time meds given. [facility] Original Note: [address] Admission Note: Pt alert and oriented x3 upon arrival via w/c. Scattered thinking at times and difficulty finding words. Pt confused at other times and says sayings that do not make sense. Pt reports 8/[address] headache pain[address] Dr Rhodes aware, tylenol given. Pt 1pa with walker, slightly unsteady on feet. Bed alarm set. O2 stats running at 93% on RA. Skin check done with JOSE Larson. Amberly jonas in room. PT has no complaints at this time. [facility] The patient,Gege Lawson,38 y/o, was given written information regarding hospital policies, unit procedures and contact persons. Patient's smoking status: Current some day smoker. Vital Signs - 8 hr 05/14/19 14:48 05/14/19 15:18 05/14/19 18:00 Temperature 98.0 F Pulse Rate 98 H 111 H 115 H Respiratory Rate 18 16 20 Blood Pressure 135/75 Blood Pressure [Right Arm] 99/56 L Pulse Oximetry 98 94 93 05/14/19 19:42 05/14/19 19:51 Temperature Pulse Rate 107 H Respiratory Rate 20 Blood Pressure Blood Pressure [Right Arm] Pulse Oximetry 93 92
[2019-05-14] MEDS: clonazePAM 0.5 MG TABLET 3 MG PO (21:59)
[2019-05-14] MEDS: QUETIAPINE 200 MG TABLET 400 MG PO (21:59)
--- NOTE | 2019-05-14 22:19 | PC.NURSE ---
Addendum entered by Bell Enriquez R.N. 05/14/19 23:14: Pt alert and oriented to self and time. Disoriented to situation. Pt very anxious and crying at bedside. Heart rate increases to 150 with activity. O2 sat @ 93% on RA. HR at 102 at this time. Pt is reporting hallucinations and delusions. Pt keeps saying I need to get out of this place, I can't be locked up again Pankaj JONES notified of patient condition. [facility] IV access attempted 2 times unsuccessfully and attempted by JOSE Shane unsuccessfully. Pankaj JONES aware of no IV access at this time. Original Note: Pt seroquel verified from patient home meds with JOSE Cedeno. No dose available in pyxis
--- NOTE | 2019-05-15 00:01 | PC.NURSE ---
notified provider of non compliance with any cares, refusal to allow IV. One was tried but unsuccessful earlier. Cursing, non compliant. Threatening to call quality control head, and threatening to leave.
--- NOTE | 2019-05-15 00:47 | PM.EVENT ---
Event Note Date Patient Seen: 05/14/19 Time Patient Seen: 23:40 Event Note: Call to the patient's room related to behavioral escalation. Ms Gege Lawson is a 38-year-old female with a history of bipolar affective disorder, asthma who was brought into the emergency room for disorganized thinking. The patient had been falling at home. She had difficulty with her speech. Speech was fluent however she was nonsensical. She was initially somewhat agitated it the she received several doses of Ativan. With the benzodiazepines the patient became calmer. She was seen by the DCS worker in the emergency department. Attempts at placement had been unsuccessful related to the patient's history of complicated asthma. She is presently awaiting psychiatric bed placement. Patient is voluntarily here in the hospital and now expressing her wish to go home. At this time the patient is medically stable. She demonstrates no shortness of breath talking freely with room air saturation 91-96%. She continues to present as paranoid, angry, with tangential thought. The patient's care plan including contacting DCR should the patient wish to leave. -Contacted the mental health crisis team/[facility], spoke with triage regarding the patient's situation in requesting DCR evaluation. - Attestation of medical clearance is provided. -spoke with DCRJose Roberto, reviewed the the patient's clinical course and current behavioral escalation progressing to wish to leave. Prior DCR evaluation notes are not available for review by either myself or Jose Roberto. -the DCR will, and re-evaluate the patient for safety to discharge or transfer to another facility. This information has been communicated to the patient.
--- NOTE | 2019-05-15 01:06 | PC.NURSE ---
Addendum entered by Argentina Sanchez CNA 05/15/19 01:33: Patient now appears to have fallen asleep, lying still and calm. Will continue to monitor. Original Note: Relieved previous 1:1 sitter. Patient is fidgeting in bed, sitting up and talking. Unable to understand what she is saying. Will continue to observe outside room.
[2019-05-15 03:00] VITALS: RESP 22
--- NOTE | 2019-05-15 03:16 | PC.NURSE ---
Patient just got done speaking with the DCR, patient walked up torres thinking that she was in the wrong room and that one of the nursing staff had moved her belongings. The DCR and myself confirmed that her belongings were in the closet and her room was 207 while she was in the hospital. The patient is currently lying in bed, quiet and calm.
--- NOTE | 2019-05-15 03:25 | PM.DS.1 ---
History of Present Illness History of Present Illness Date Patient Seen: 05/15/19 Time Patient Seen: 00:30 Chief complaint: Confusion Narrative: Patient is a 38-year-old female with a history of bipolar affective disorder, asthma who was brought into the emergency room for disorganized thinking. The patient had been falling at home. She had difficulty with her speech. Speech was fluent however she was nonsensical. She was initially somewhat agitated it the she received several doses of Ativan. With the benzodiazepines the patient became calmer. She was seen by the DCS worker. It was felt that the patient was unsafe for discharge and needed to be involuntarily held. However the patient became more cooperative. Implants were underway for her to be transferred to a psych facility for an inpatient psychiatric admission. As the patient has been intubated twice in the past, was previously on oxygen at home and was felt to be medically complicated the only psychiatric facilities willing to consider her were [facility] and [facility]. Unfortunately neither hospital at this time has a bed available. The patient will be admitted to [facility] with plans to transfer her to a psychiatric facility once a bed becomes available. At this time the patient is pleasant and cooperative. However she is unable to provide any history. She somewhat scattered in her thinking and times her explanation makes no sense. Discharge Providers Provider Date of admission: 05/14/19 17:48 Discharge Date: 05/15/19 Consults: 05/14/19 05:00 Consult to [employer] DRIVER - [employer] 1 Operator [place] [facility] [place]: Behavioral Health Assess 05/14/19 18:38 Consult to Dietitian, Adult Routine Comment: Reason For Exam: no appetite Discharge provider: ROBERT Salazar Summary Hospital Course Discharge Diagnosis: 1. Decompensated bipolar affective disorder. 2. Persistent moderate asthma. Hospital Course: Ms Gege Lawson is a 38-year-old female with a history of bipolar affective disorder, asthma who was brought into the emergency room for disorganized thinking. The patient had been falling at home. She had difficulty with her speech. Speech was fluent however she was nonsensical. She was initially somewhat agitated it the she received several doses of Ativan. With the benzodiazepines the patient became calmer. She was seen by the DCS worker in the emergency department. Attempts at placement had been unsuccessful related to the patient's history of complicated asthma. The patient is admitted to the hospital pending placement with decompensated bipolar affective disorder and is presently awaiting psychiatric bed placement. Patient is voluntarily here in the hospital and now expressing her wish to go home. At this time the patient is medically stable. She demonstrates no shortness of breath talking freely with room air saturation 91-96%. She continues to present as paranoid, angry, with tangential thought. The patient's care plan including contacting DCR should the patient wish to leave. -Contacted the mental health crisis team/[facility], spoke with triage regarding the patient's situation in requesting DCR evaluation. - Attestation of medical clearance is provided. -spoke with DCRJose Roberto, reviewed the the patient's clinical course and current behavioral escalation progressing to wish to leave. Prior DCR evaluation notes are not available for review by either myself or Jose Roberto. -the DCR will, and re-evaluate the patient for safety to discharge or transfer to another facility. This information has been communicated to the patient. Status at Discharge Cognitive/behavioral status at discharge: agitated Functional status at discharge: independent ambulation Overall status at discharge: patient is progressing back to baseline Time Spent with Patient Time spent: Less than 30 minutes Exam Vital Signs (past 8 hours): - 05/14/19 18:00 05/14/19 19:42 05/14/19 19:51 Temperature 98.0 F Pulse Rate 115 H 107 H Respiratory Rate 20 20 Blood Pressure 135/75 Pulse Oximetry 93 93 92 Oxygen Delivery Method Room Air Oxygen Flow Rate 0 Narrative Exam Narrative: GENERAL APPEARANCE: well developed, obese female, agitated, restless, pacing. HEENT: Normocephalic, PERRLA. SKIN: [place], warm and dry. HEART: regular rate and rhythm. LUNGS: No audible wheezing, SpO2 96%, Speaking in full sentences CHEST: Symmetrical movement, no accessory muscle use, no dyspnea with exertion. EXTREMITIES: moves all extremities, strength is 5/5 and symmetrical, no deformities. NEUROLOGIC: Alert and oriented to person, place, situation and date, no focal neurologic deficits. PSYCH: Angry, paranoid statements, tangential thought, poor eye contact, denies suicidal ideation or thoughts of self-harm, able to articulate and appropriate 4 step process to go home. Objective Labs Result Diagrams: 05/13/19 23:30 05/13/19 23:30 Labs: Laboratory Results - last 24 hr 05/13/19 22:30 Lipase 36 Discharge Plan Discharge Plan Patient Disposition: Home Discharge comment: Follow-up with Dr. womack in 1 to 2 weeks Follow-up with [facility], mental health provider and counseling. Discharge orders & Medications Prescriptions: Continued ibuprofen 800 mg tablet 800 mg PO BID-TID PRN (Reason: pain) Qty: 30 RF: 0 albuterol sulfate 2.5 mg /3 mL (0.083 %) solution for nebulization 1 neb Inhalation PRN PRN (Reason: SOB) RF: 0 cyclobenzaprine 5 mg Tablet 5 mg PO BID RF: 0 clonazepam 1 mg Tablet 3 mg PO TID RF: 0 albuterol sulfate [Ventolin HFA] 90 mcg/actuation Hfa Aerosol Inhaler 2 puff INHALATION QID RF: 0 quetiapine 400 mg Tablet 400 mg PO DAILY RF: 0 prazosin 1 mg Capsule 2 mg PO BEDTIME RF: 0 Diet/Activity/Treatments Diet: Regular Activity: As tolerated
--- NOTE | 2019-05-15 09:09 | PC.NURSE ---
Day shift: Pt awake and ambulated in torres with SCHOOL BUS DISPATCHER. Pt in good spirits at this time. Plan is to d/c Pt when ride arrives. Aware.
[2019-05-15 09:14] VITALS: BP 84/52; PULSE 110; RESP 19; O2SAT 95
--- NOTE | 2019-05-15 09:21 | PC.NURSE ---
Pt went for a walk through [place] with me and has a limp, Pt stated that she stubbed her toe at the nurses station. Pt stated that she is very eager to return home.
[2019-05-15] MEDS: clonazePAM 0.5 MG TABLET 3 MG PO ×3 (09:41→20:39)
[2019-05-15 12:37] VITALS: RESP 16; O2SAT 97
[2019-05-15] MEDS: ALBUTEROL 2.5 MG/3 ML NEB (ADULT) INH ×3 (12:37→21:24)
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
[2019-05-15 15:47] VITALS: RESP 16; O2SAT 97
[2019-05-15 16:03] VITALS: BP 123/61; PULSE 106; RESP 18; TEMP 36.9; O2SAT 94
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
[2019-05-15] MEDS: LORazepam 0.5 MG TABLET 1 MG PO (18:12)
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
[2019-05-15] MEDS: QUETIAPINE 200 MG TABLET 400 MG PO (20:39)
[2019-05-15 21:30] VITALS: PULSE 97; RESP 16; O2SAT 96
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
[2019-05-18 09:24] LABS: Lamotrigine Lamictal 16.2 mcg/mL (4.0-18.0)
== END 2019-05-15 23:00 | disposition home or self-care (01) ==
LOC: ED 05-14 17:43 → AC 05-15 03:21
PROVIDERS: Emergency Medicine; Admitting Provider Internal Medicine; Emergency Provider Emergency Medicine; Visit Provider Internal Medicine
DX: R41.0 Disorientation, unspecified (principal); R29.6 Repeated falls; J45.909 Unspecified asthma, uncomplicated; F31.4 Bipolar disorder, current episode depressed, severe, without psychotic features; R45.1 Restlessness and agitation; F17.210 Nicotine dependence, cigarettes, uncomplicated; R03.1 Nonspecific low blood-pressure reading
CPT/HCPCS: 36415; 70450; 71045; 80053; 80175; 80305; 80320; 80329; 81003; 81015; 81025; 83605; 83690; 84443; 85025; 85610; 85730; 93005; 93010; 94640; 94762; 96361; 96374; 99285; G0378; G0480; J2060; J7613